=== PATIENT | female | born 1940 | race Two or more races ===

== ENCOUNTER 2023-06-04 10:38 | Emergency (ER) | payer MEDICARE, OTHER, SELFPAY ==
[2023-06-04] VITALS (8 sets, daily range): BP systolic 97–130; BP diastolic 67–76
--- NOTE | 2023-06-04 10:55 | ED.GENMED ---
History of Present Illness
General
Chief Complaint: Change in Mental Status
Source: patient
Exam Limitations: none
Time Seen by Provider: 06/04/23 10:46
Travel History
Have you had any contact with someone who has COVID-19?: Unable to Answer
Do you have any symptoms of coronavirus? Fever > 100 degrees, chills, cough, shortness of breath, sore throat, loss of taste or smell, muscle aches, or headache?: Unable to Answer
History of Present Illness
History of Present Illness:
82-year-old female with history of dementia, coronary artery disease COPD presents from [facility] with increased lethargy that noticed this morning. Patient very poor historian. Cannot obtain any history from the patient. She was
hypotensive for EMS. No reported fever.
Phy Exam
Physical Exam
Physical Exam:
General: Well-appearing female in no acute respiratory distress
HEENT: Normocephalic mucosa dry neck is supple heart: Regular rate and rhythm no murmurs
Lungs: Breath sounds diminished bilaterally
Abdomen soft nontender nondistended
Extremities: No cyanosis or edema
Course
Orders/Labs/Results
Orders:
Orders
06/04/23 10:42
EKG [Electrocardiogram (*1)] Urgent
Reason for Study: Fatigue / Weakness
EKG- Treatment ONCE
06/04/23 10:56
0.9% Sodium Chloride 1000 ml [Nss] 1,000 ml IV BOLUS
06/04/23 10:58
CR Chest - 2 Views Urgent
Comment:
Reason For Exam: fatigue
06/04/23 11:06
Basic Metabolic Panel Urgent
Complete Blood Count/With Diff Urgent
Lactic Acid Q4H
Comment: CANCEL 2nd LACTIC ACID IF 1st LACTIC ACID IS LESS THAN 2
Blood Culture Q30M
GUMARO Source: Blood/Venous
Specimen Description:
Blood Culture Q30M
GUMARO Source: Blood/Venous
Specimen Description:
06/04/23 11:55
Comprehensive Metabolic Panel Urgent
06/04/23 14:03
Urinalysis Reflex To Culture Urgent
Date Specimen was Collected: 06/04/23
Time Specimen was Collected: 14:01
Urine Microscopic Reflex Cult Urgent
Urine Culture Urgent
GUMARO Source: U
Specimen Description:
Date Specimen was Collected: 06/04/23
Time Specimen was Collected: 14:01
06/04/23 15:00
Lactic Acid Q4H
Comment: CANCEL 2nd LACTIC ACID IF 1st LACTIC ACID IS LESS THAN 2
Abnormal Lab Results
06/04/23 06/04/23 06/04/23
11:06 11:55 14:03
MCHC 32.3 L g/dL
(33.0-37.0)
Absolute Neuts (auto) 7.3 H 10^3/uL
(1.4-6.5)
Absolute Monos (auto) 0.8 H 10^3/uL
(0.1-0.6)
Lymphocytes % 18.8 L %
(20.5-51.1)
Chloride 110 H mmol/L 110 H mmol/L
(98-107) (98-107)
Carbon Dioxide 20 L mmol/L
(22-30)
BUN 33 H mg/dl 32 H mg/dl
(7-17) (7-17)
Creatinine 1.1 H mg/dL
(0.6-1.0)
Glucose 131 H mg/dl 128 H mg/dl
(70-99) (70-99)
Lactic Acid 2.3 H mmol/L
(0.7-2.0)
Urine Bilirubin 1+ A
(Negative)
Leukocyte Esterase Rfl 1+ A
(Negative)
Urine WBC (Reflex) 11-15 A /HPF
(0-5)
Urine Bacteria (Reflex) Few A
(Negative)
06/04/23 11:06
06/04/23 11:55
Vital Signs
Initial and Last Documented VS:
Initial Vital Signs
Temp Pulse Resp BP Pulse Ox
97.5 F 74 16 97/74 96
06/04/23 10:53 06/04/23 10:53 06/04/23 10:53 06/04/23 10:53 06/04/23 10:53
Last Documented Vital Signs
Temp Pulse Resp BP Pulse Ox
97.5 F 90 10 109/71 95
06/04/23 10:53 06/04/23 13:00 06/04/23 13:00 06/04/23 13:00 06/04/23 11:48
MDM/Problems Addressed
Differential Diagnosis Includes:
Increased fatigue. Hypotensive here blood pressure 97/74. Will order IV fluids. Check labs urinalysis chest x-ray and blood culture. Initial attempt at straight cath provided just a couple drops of urine not enough to provide a sample. Will
hydrate and check again.
*Critical Care Note
Total Time (30-74mins, 75-104mins- exclusive of procedures): Not Applicable
Update Note
Update Note:
EKG shows sinus rhythm with sinus arrhythmia with a rate of 74 no ischemic changes
Urinalysis negative. Chest x-ray shows hiatal hernia. Workup here unrevealing. Vital signs been stable here. Suspect she was slightly dehydrated. She did make urine after giving a liter of fluid. No indication for admission stable for discharge
ED Attending Note
-
Portions of this chart may have been created with voice recognition software.� Occasional wrong word or��sound alike� substitutions may have occurred due to the inherent limitations of voice recognition software.
Discharge Plan
Departure
Patient Disposition: Home (Routine Discharge)
Date of Disposition: 06/04/23
Time of Disposition: 14:46
Patient with high blood pressure during this ER visit?: No
Discharge Problem:
Dehydration
Instructions: Altered Mental Status (DC)
Prescriptions:
No Action
quetiapine [Seroquel] 25 mg Tablet
125 mg PO DAILY
acetaminophen [Tylenol] 325 mg Tablet
650 mg PO DAILYPRN PRN (Reason: MILD PAIN)
trazodone 50 mg Tablet
25 mg PO HS
trazodone 50 mg Tablet
50 mg PO DAILY
atorvastatin [Lipitor] 10 mg Tablet
10 mg PO QPM
quetiapine [Seroquel] 100 mg Tablet
100 mg PO QPM
acetaminophen [Tylenol Extra Strength] 500 mg Tablet
1,000 mg PO BID
famotidine [Pepcid] 20 mg Tablet
20 mg PO DAILY
lorazepam 0.5 mg Tablet
0.5 mg PO HS
magnesium hydroxide [Milk of Magnesia] 400 mg/5 mL Suspension
2,400 mg PO HSPRN PRN (Reason: CONSTIPATION)
bisacodyl [Dulcolax (bisacodyl)] 10 mg Suppository
10 mg [place] [id number] PRN (Reason: IF NO BM AFTR MOM)
nitroglycerin [Nitrostat] 0.4 mg Tablet, Sublingual
0.4 mg SUBLINGUAL [id number] PRN (Reason: CHEST PAIN)
Debrox 6.5 % Drops
2 drp OTIC (EAR) MOFR
alum-mag hydroxide-simeth [Maalox] 200-200-20 mg/5 mL Suspension
30 ml PO Q6HPRN PRN (Reason: INDIGESTION)
celecoxib 100 mg Capsule
100 mg PO DAILY@1630
diclofenac sodium [Voltaren] 1 % Gel
3 g TOPICAL Q8H
Lorazepam Gel 0.5 MG gel
0.5 mg topical DAILYPRN PRN (Reason: ANXIETY)
Referrals:
Octaviano Oconnor DO [Family Provider] -
Activity Restrictions/Additional Instructions:
Please continue current regimen. Return here for worsening symptoms.
Interventions
Interventions:
*Risk Screen - Suicide Last Done: 06/04/23 13:05
*General Assessment Last Done: 06/04/23 11:31
*Neglect/Abuse Screening Last Done: 06/04/23 11:31
*ED COVID-19 Vaccine History Last Done: 06/04/23 11:31
ED- Pulmonary Assessment Last Done: 06/04/23 11:48
ED- Neurological Assessment Last Done: 06/04/23 11:46
ED- Cardiac Assessment Last Done: 06/04/23 11:45
Discharge Date and Time
Print Language: OMANI
[2023-06-04] MEDS: NSS 1000 IV (11:05)
[2023-06-04 11:15] LABS: % Basophils 0.3 % (0-2); % Eosinophils 1.5 % (0-6); % Immature Granulocytes 0.3 % (0-0.5); % Lymphocytes 18.8 % (20.5-51.1); % Neutrophils 71.1 % (42.2-75.2); Absolute Eosinophils 0.2 10^3/uL (0-0.7); Absolute Lymphocytes 1.9 10^3/uL (1.2-3.4); Absolute Monocytes 0.8 10^3/uL (0.1-0.6); Absolute Neutrophils 7.3 10^3/uL (1.4-6.5); Hematocrit 39.6 % (37.0-47.0); Hemoglobin 12.8 g/dL (12.0-16.0); Mean Corp Hgb Conc. 32.3 g/dL (33.0-37.0); Mean Corpuscular Hgb 29.9 pg (27.0-31.0); Mean Corpuscular Volume 92.5 fL (81.0-99.0); Mean Platelet Volume 10.4 fL (7.4-10.4); Nucleated Red Blood Cells % 0 %; Platelet Count 223 10^3/uL (130-400); Red Blood Cell Count 4.28 10^6/uL (4.20-5.40); Red Cell Dist. Width 14.4 % (11.5-14.5); White Blood Cell Count 10.2 10^3/uL (4.8-10.8)
[2023-06-04 11:34] LABS: Blood Urea Nitrogen 33 mg/dl (7-17); Calcium 10.1 mg/dl (8.4-10.2); Carbon Dioxide 20 mmol/L (22-30); Chloride 110 mmol/L (98-107); Glucose 131 mg/dl (70-99); Sodium 138 mmol/L (135-145); eGFR 56.25
[2023-06-04 12:35] LABS: ALT (SGPT) 13 U/L (0-35); AST (SGOT) 23 U/L (14-36); Albumin 4.1 g/dl (3.5-5.0); Alkaline Phosphatase 80 U/L (38-126); Blood Urea Nitrogen 32 mg/dl (7-17); Carbon Dioxide 23 mmol/L (22-30); Chloride 110 mmol/L (98-107); Glucose 128 mg/dl (70-99); Potassium 4.5 mmol/L (3.5-5.1); Sodium 139 mmol/L (135-145); Total Bilirubin 0.4 mg/dl (0.2-1.3); eGFR 50.17
[2023-06-04 12:37] LABS: Lactic Acid 2.3 mmol/L (0.7-2.0)
[2023-06-04 14:11] LABS: Urine Albumin Negative (Neg - Trace); Urine Bilirubin 1+ (Negative); Urine Character Clear (Clear); Urine Color Yellow; Urine Glucose Negative (Negative); Urine Ketone Negative (Negative); Urine Leukocyte 1+ (Negative); Urine Nitrite Negative (Negative); Urine Occult Blood Negative (Negative); Urine Urobilinogen 1+ (Neg - 1+)
[2023-06-04 14:28] LABS: Urine Mucus Few
[2023-06-04 14:30] LABS: Urine Amorphous Seen; Urine Hyaline Cast >15 /LPF (0-2)
[2023-06-04 14:31] LABS: Urine Bacteria Few (Negative); Urine Red Blood Cell 0-2 /HPF (0-2)
== END 2023-06-04 17:40 | disposition home or self-care (01) ==
LOC: EMR 10:38
PROVIDERS: Physician Assistant; EMERGENCY PHYSICIAN Emergency Medicine; FAMILY PHYSICIAN Student in an Organized Health Care Education/Training Program
DX: E86.0 Dehydration (principal); F03.90 Unspecified dementia, unspecified severity, without behavioral disturbance, psychotic disturbance, mood disturbance, and anxiety; K44.9 Diaphragmatic hernia without obstruction or gangrene
CPT/HCPCS: 99285; 96360; 71046; 80048; 80053; 81003; 81015; 83605; 85025; 87040; 87086; 93005

== ENCOUNTER 2023-08-04 15:28 | Emergency (ER) | payer MEDICARE, OTHER, SELFPAY ==
[2023-08-04] VITALS (7 sets, daily range): BP systolic 80–129; BP diastolic 47–66; BMI 24.4
--- NOTE | 2023-08-04 16:09 | ED.GENMED ---
History of Present Illness
General
Chief Complaint: Blood Pressure Problem
Source: patient
Exam Limitations: none
Time Seen by Provider: 08/04/23 16:00
History of Present Illness
History of Present Illness:
82-year-old female presents from [facility] with episode of unresponsiveness and weakness. Patient has dementia and cannot provide any valuable history. Noted to be hypotensive on arrival. Currently not accompanied by any family members.
Phy Exam
Physical Exam
Physical Exam:
General: Well-developed female resting comfortably no acute respiratory distress
Neurologic: Responds to verbal stimuli able to tell me her name face is symmetric no drift on exam does follow commands occasionally
Heart: Regular rate and rhythm
Lungs: Clear to auscultation bilaterally
Extremities: No cyanosis or edema
Skin warm no rash
Course
Orders/Labs/Results
Orders:
Orders
08/04/23 17:28
0.9% Sodium Chloride 500 ml [Nss] 500 ml IV BOLUS
08/04/23 17:34
Complete Blood Count/With Diff Urgent
Comprehensive Metabolic Panel Urgent
Abnormal Lab Results
08/04/23
17:34
WBC 14.0 H 10^3/uL
(4.8-10.8)
MCHC 32.3 L g/dL
(33.0-37.0)
Abs Immat Gran (auto) 0.1 H 10^3/uL
(0-0.05)
Absolute Neuts (auto) 12.2 H 10^3/uL
(1.4-6.5)
Absolute Lymphs (auto) 0.9 L 10^3/uL
(1.2-3.4)
Absolute Monos (auto) 0.7 H 10^3/uL
(0.1-0.6)
Neutrophils % 87.2 H %
(42.2-75.2)
Lymphocytes % 6.7 L %
(20.5-51.1)
Chloride 111 H mmol/L
(98-107)
Carbon Dioxide 21 L mmol/L
(22-30)
BUN 30 H mg/dl
(7-17)
Glucose 131 H mg/dl
(70-99)
08/04/23 17:34
08/04/23 17:34
Vital Signs
Initial and Last Documented VS:
Initial Vital Signs
Temp Pulse Resp BP Pulse Ox
97.9 F 65 16 80/65 94
08/04/23 15:32 08/04/23 15:32 08/04/23 15:32 08/04/23 15:32 08/04/23 15:32
Last Documented Vital Signs
Temp Pulse Resp BP Pulse Ox
97.9 F 65 16 117/60 92
08/04/23 15:32 08/04/23 15:32 08/04/23 15:32 08/04/23 18:30 08/04/23 15:37
MDM/Problems Addressed
Differential Diagnosis Includes:
Weakness. Consider volume depletion. Afebrile will check labs. Hydration ordered.
Patient has similar presentation in May of this year and responded to fluids
*Critical Care Note
Total Time (30-74mins, 75-104mins- exclusive of procedures): Not Applicable
Update Note
Update Note:
Patient reevaluated. She is alert now getting out of bed. She was hydrated. Blood pressure is improved. Stable for discharge back to facility
ED Attending Note
-
Portions of this chart may have been created with voice recognition software.� Occasional wrong word or��sound alike� substitutions may have occurred due to the inherent limitations of voice recognition software.
Discharge Plan
Departure
Patient Disposition: Home (Routine Discharge)
Date of Disposition: 08/04/23
Time of Disposition: 19:12
Patient with high blood pressure during this ER visit?: No
Discharge Problem:
Acute dehydration
Prescriptions:
No Action
quetiapine [Seroquel] 25 mg Tablet
125 mg PO DAILY
acetaminophen [Tylenol] 325 mg Tablet
650 mg PO DAILYPRN PRN (Reason: MILD PAIN)
trazodone 50 mg Tablet
25 mg PO HS
trazodone 50 mg Tablet
50 mg PO DAILY
atorvastatin [Lipitor] 10 mg Tablet
10 mg PO QPM
quetiapine [Seroquel] 100 mg Tablet
100 mg PO QPM
acetaminophen [Tylenol Extra Strength] 500 mg Tablet
1,000 mg PO BID
famotidine [Pepcid] 20 mg Tablet
20 mg PO DAILY
lorazepam 0.5 mg Tablet
0.5 mg PO HS
magnesium hydroxide [Milk of Magnesia] 400 mg/5 mL Suspension
2,400 mg PO HSPRN PRN (Reason: CONSTIPATION)
bisacodyl [Dulcolax (bisacodyl)] 10 mg Suppository
10 mg [place] [id number] PRN (Reason: IF NO BM AFTR MOM)
nitroglycerin [Nitrostat] 0.4 mg Tablet, Sublingual
0.4 mg SUBLINGUAL [id number] PRN (Reason: CHEST PAIN)
Debrox 6.5 % Drops
2 drp OTIC (EAR) MOFR
alum-mag hydroxide-simeth [Maalox] 200-200-20 mg/5 mL Suspension
30 ml PO Q6HPRN PRN (Reason: INDIGESTION)
celecoxib 100 mg Capsule
100 mg PO DAILY@1630
diclofenac sodium [Voltaren] 1 % Gel
3 g TOPICAL Q8H
Lorazepam Gel 0.5 MG gel
0.5 mg topical DAILYPRN PRN (Reason: ANXIETY)
Referrals:
Octaviano Oconnor DO [Family Provider] -
Activity Restrictions/Additional Instructions:
Please return here if needed
Interventions
Interventions:
*Risk Screen - Suicide Last Done: 08/04/23 15:32
*General Assessment Last Done: 08/04/23 15:32
*Neglect/Abuse Screening Last Done: 08/04/23 15:32
*ED COVID-19 Vaccine History Last Done: 08/04/23 15:32
ED- Cardiac Assessment Last Done: 08/04/23 15:37
ED- Neurological Assessment Last Done: 08/04/23 15:37
ED- Pulmonary Assessment Last Done: 08/04/23 15:37
Discharge Date and Time
Print Language: CROATIAN
[2023-08-04] MEDS: NSS 500 IV (17:36)
[2023-08-04 17:40] LABS: % Basophils 0.2 % (0-2); % Eosinophils 0.2 % (0-6); % Immature Granulocytes 0.4 % (0-0.5); % Lymphocytes 6.7 % (20.5-51.1); % Monocytes 5.3 % (1.7-9.3); % Neutrophils 87.2 % (42.2-75.2); Absolute Immature Granulocytes 0.1 10^3/uL (0-0.05); Absolute Lymphocytes 0.9 10^3/uL (1.2-3.4); Absolute Monocytes 0.7 10^3/uL (0.1-0.6); Absolute Neutrophils 12.2 10^3/uL (1.4-6.5); Hemoglobin 12.6 g/dL (12.0-16.0); Mean Corp Hgb Conc. 32.3 g/dL (33.0-37.0); Mean Corpuscular Hgb 29.8 pg (27.0-31.0); Mean Corpuscular Volume 92.2 fL (81.0-99.0); Mean Platelet Volume 9.9 fL (7.4-10.4); Nucleated Red Blood Cells % 0 %; Platelet Count 210 10^3/uL (130-400); Red Blood Cell Count 4.23 10^6/uL (4.20-5.40); Red Cell Dist. Width 14.3 % (11.5-14.5)
[2023-08-04 18:04] LABS: ALT (SGPT) 11 U/L (0-35); AST (SGOT) 19 U/L (14-36); Albumin 3.7 g/dl (3.5-5.0); Alkaline Phosphatase 67 U/L (38-126); Blood Urea Nitrogen 30 mg/dl (7-17); Calcium 9.2 mg/dl (8.4-10.2); Carbon Dioxide 21 mmol/L (22-30); Chloride 111 mmol/L (98-107); Estimated Creatinine Clearance 39 ml/min; Glucose 131 mg/dl (70-99); Potassium 4.3 mmol/L (3.5-5.1); Sodium 139 mmol/L (135-145); Total Bilirubin 0.4 mg/dl (0.2-1.3); Total Protein 6.5 g/dl (6.3-8.2); eGFR 56.25
[2023-08-04] MEDS: ATIVAN 0.5 MG IV (19:21)
--- NOTE | 2023-08-04 19:25 | EDRN ---
Per staff, pt was trying to climb out of bed and when staff attempted to put her back in stretcher she tried to bite staff. Staff tilted the stretcher backwards and pt continued to try and get out of bed. Pt was banging on side rail, yelling and
shaking her hand in the air. Pt became 1:1 for pt safety - EDT at bedside. Pt medicated with 0.5mg ativan IV as ordered with noted improvement - pt still talking occasionally, not yelling or trying to hit/bite staff. Pt also not trying to get out
of bed. Pt said she wants to go home - informed transport will be here to take her home. Pt then said 'but my mother doesn't know where I am.' Emotional support provided to pt.
--- NOTE | 2023-08-04 20:35 | EDRN ---
Pt sitting in chair, talking quietly with EDT. This RN attempted to call report - no answer
== END 2023-08-04 21:20 | disposition home or self-care (01) ==
LOC: EMR 15:28
PROVIDERS: Physician Assistant; EMERGENCY PHYSICIAN Emergency Medicine; FAMILY PHYSICIAN Student in an Organized Health Care Education/Training Program
DX: R40.4 Transient alteration of awareness (principal); R53.1 Weakness; I95.9 Hypotension, unspecified; E86.0 Dehydration; F03.90 Unspecified dementia, unspecified severity, without behavioral disturbance, psychotic disturbance, mood disturbance, and anxiety; Z88.0 Allergy status to penicillin
CPT/HCPCS: 99284; 96374; 80053; 85025

== ENCOUNTER → 2023-08-12 10:16 | Outpatient (REF) | payer MEDICARE, OTHER, SELFPAY ==
[2023-08-12 11:02] LABS: Hematocrit 38.8 % (37.0-47.0); Hemoglobin 11.9 g/dL (12.0-16.0); Mean Corp Hgb Conc. 30.7 g/dL (33.0-37.0); Mean Corpuscular Hgb 29.4 pg (27.0-31.0); Mean Corpuscular Volume 95.8 fL (81.0-99.0); Mean Platelet Volume 10.6 fL (7.4-10.4); Platelet Count 227 10^3/uL (130-400); Red Blood Cell Count 4.05 10^6/uL (4.20-5.40); Red Cell Dist. Width 14.1 % (11.5-14.5); White Blood Cell Count 5.7 10^3/uL (4.8-10.8)
[2023-08-12 11:28] LABS: Blood Urea Nitrogen 29 mg/dl (7-17); Calcium 9.3 mg/dl (8.4-10.2); Carbon Dioxide 25 mmol/L (22-30); Chloride 107 mmol/L (98-107); Glucose 81 mg/dl (70-99); Potassium 4.3 mmol/L (3.5-5.1); Sodium 140 mmol/L (135-145); eGFR > 60.00
== END ==
LOC: OLABN 10:16
PROVIDERS: ATTENDING PHYSICIAN Student in an Organized Health Care Education/Training Program
DX: I10 Essential (primary) hypertension (principal)
CPT/HCPCS: 36415; 80048; 83735; 85027

== ENCOUNTER → 2023-12-23 09:24 | Outpatient (REF) | payer MEDICARE, OTHER, SELFPAY ==
[2023-12-23 12:30] LABS: ALT (SGPT) 13 U/L (0-35); AST (SGOT) 20 U/L (14-36); Albumin 3.9 g/dl (3.5-5.0); Alkaline Phosphatase 64 U/L (38-126); Blood Urea Nitrogen 28 mg/dl (7-17); Calcium 9.8 mg/dl (8.4-10.2); Carbon Dioxide 25 mmol/L (22-30); Chloride 107 mmol/L (98-107); Glucose 90 mg/dl (70-99); HDL Cholesterol 45 mg/dl; LDL Cholesterol, Calculated 69 mg/dl; Potassium 4.4 mmol/L (3.5-5.1); Sodium 144 mmol/L (135-145); Total Bilirubin 0.3 mg/dl (0.2-1.3); Total Cholesterol 145 mg/dl (50-199); Total Protein 6.5 g/dl (6.3-8.2); Triglyceride 158 mg/dl (10-149); Very Low Density Lipoprotein 31 mg/dl (0-30); eGFR 49.86
[2023-12-23 12:33] LABS: Hematocrit 38.7 % (37.0-47.0); Hemoglobin 12.1 g/dL (12.0-16.0); Mean Corp Hgb Conc. 31.3 g/dL (33.0-37.0); Mean Corpuscular Hgb 30.1 pg (27.0-31.0); Mean Corpuscular Volume 96.3 fL (81.0-99.0); Platelet Count 228 10^3/uL (130-400); Red Blood Cell Count 4.02 10^6/uL (4.20-5.40); Red Cell Dist. Width 13.9 % (11.5-14.5); White Blood Cell Count 6.3 10^3/uL (4.8-10.8)
[2023-12-23 14:36] LABS: Glycohemoglobin (HgbA1c) 5.5 % (4.0-5.6)
== END ==
LOC: OLABN 09:24
PROVIDERS: ATTENDING PHYSICIAN Student in an Organized Health Care Education/Training Program
DX: I10 Essential (primary) hypertension (principal); R73.9 Hyperglycemia, unspecified
CPT/HCPCS: 36415; 80053; 80061; 83036; 85027

== ENCOUNTER 2024-03-09 11:53 | Emergency (ER) | payer MEDICARE, OTHER, SELFPAY ==
[2024-03-09 12:08] VITALS: BP 146/124
[2024-03-09 12:34] LABS: Urine Albumin Negative (Neg - Trace); Urine Bilirubin Negative (Negative); Urine Character Clear (Clear); Urine Color Yellow; Urine Glucose Negative (Negative); Urine Ketone Negative (Negative); Urine Leukocyte Negative (Negative); Urine Nitrite Negative (Negative); Urine Occult Blood Negative (Negative); Urine Urobilinogen Negative (Neg - 1+)
[2024-03-09 12:36] LABS: % Basophils 0.3 % (0-2); % Eosinophils 1.3 % (0-6); % Immature Granulocytes 0.4 % (0-0.5); % Lymphocytes 11.8 % (20.5-51.1); % Monocytes 9.5 % (1.7-9.3); % Neutrophils 76.7 % (42.2-75.2); Absolute Eosinophils 0.2 10^3/uL (0-0.7); Absolute Immature Granulocytes 0.1 10^3/uL (0-0.05); Absolute Lymphocytes 1.4 10^3/uL (1.2-3.4); Absolute Monocytes 1.1 10^3/uL (0.1-0.6); Absolute Neutrophils 9.2 10^3/uL (1.4-6.5); Hematocrit 42.4 % (37.0-47.0); Hemoglobin 13.1 g/dL (12.0-16.0); Mean Corp Hgb Conc. 30.9 g/dL (33.0-37.0); Mean Corpuscular Hgb 29.6 pg (27.0-31.0); Mean Corpuscular Volume 95.9 fL (81.0-99.0); Mean Platelet Volume 10.7 fL (7.4-10.4); Nucleated Red Blood Cells % 0 %; Platelet Count 222 10^3/uL (130-400); Red Blood Cell Count 4.42 10^6/uL (4.20-5.40); Red Cell Dist. Width 13.9 % (11.5-14.5)
[2024-03-09 12:49] LABS: ALT (SGPT) 14 U/L (0-35); AST (SGOT) 21 U/L (14-36); Alkaline Phosphatase 96 U/L (38-126); Blood Urea Nitrogen 20 mg/dl (7-17); Calcium 9.6 mg/dl (8.4-10.2); Carbon Dioxide 24 mmol/L (22-30); Chloride 105 mmol/L (98-107); Glucose 99 mg/dl (70-99); Potassium 4.7 mmol/L (3.5-5.1); Sodium 139 mmol/L (135-145); Total Bilirubin 0.9 mg/dl (0.2-1.3); eGFR > 60.00
--- NOTE | 2024-03-09 14:18 | ED.GENMED ---
History of Present Illness
General
Chief Complaint: Change in Mental Status
Source: ambulance crew and [facility]
Exam Limitations: dementia
Time Seen by Provider: 03/09/24 12:42
Nursing documentation reviewed up to this point in time: agreed with
History of Present Illness
History of Present Illness:
83-year-old female presenting to the emergency department today after she was lethargic at her nursing facility. Here she is fully alert not oriented but this is patient's baseline. Labs show very slight white count of 12 but otherwise no emergent
findings. Patient is a DNR and comfort measures only.
Review of Systems
Review of Systems
Allergies reviewed?: Yes
All Other Systems: ROS reviewed and negative except as documented in HPI and ROS
Phy Exam
Physical Exam
Physical Exam:
GENERAL: Alert , in no apparent distress
EYE: pupils equal and reactive
NECK: Supple, no significant adenopathy.
ENT: o/p clr, mmm.
CARDIAC: Regular rate and rhythm .
LUNGS: Clear breath sounds bilaterally, no acute respiratory distress, no wheezes/rales/rhonchi
ABDOMEN: Soft, without focal tenderness, no r/g, no cvat
NEUROLOGICAL: Alert no focal neuro deficits walking with steady gait
SKIN: Warm and dry, skin intact.
MUSCULOSKELETAL: No edema, well perfused.
PSYCH: Normal and appropriate interaction.
Course
Orders/Labs/Results
Orders:
Orders
03/09/24 12:15
Straight cath- Treatment ONCE
03/09/24 12:16
CMP [Comprehensive Metabolic Panel] Urgent
Complete Blood Count/With Diff Urgent
Urinalysis Reflex To Culture Urgent
Date Specimen was Collected: 03/09/24
Time Specimen was Collected: 12:15
03/09/24 13:50
COVID-19 Antigen Urgent
Source: Nasal Swab
Influenza A+B Rapid Molecular Urgent
GUMARO Source: Nasal Swab
Specimen Description:
Abnormal Lab Results
03/09/24
12:16
WBC 12.0 H 10^3/uL
(4.8-10.8)
MCHC 30.9 L g/dL
(33.0-37.0)
MPV 10.7 H fL
(7.4-10.4)
Abs Immat Gran (auto) 0.1 H 10^3/uL
(0-0.05)
Absolute Neuts (auto) 9.2 H 10^3/uL
(1.4-6.5)
Absolute Monos (auto) 1.1 H 10^3/uL
(0.1-0.6)
Neutrophils % 76.7 H %
(42.2-75.2)
Lymphocytes % 11.8 L %
(20.5-51.1)
Monocytes % 9.5 H %
(1.7-9.3)
BUN 20 H mg/dl
(7-17)
03/09/24 12:16
03/09/24 12:16
Vital Signs
Initial and Last Documented VS:
Initial Vital Signs
Temp Pulse Resp BP Pulse Ox
98.8 F 72 15 146/124 97
03/09/24 12:08 03/09/24 12:08 03/09/24 12:03/09/24 12:08 03/09/24 12:08
Last Documented Vital Signs
Temp Pulse Resp BP Pulse Ox
98.8 F 81 22 146/124 98
03/09/24 12:08 03/09/24 12:30 03/09/24 12:30 03/09/24 12:08 03/09/24 12:15
MDM/Problems Addressed
MDM/Problems Addressed:
83-year-old female presenting to the emergency department today after she was lethargic at her nursing facility. Here she is fully alert not oriented but this is patient's baseline. Labs show very slight white count of 12 but otherwise no emergent
findings. Patient is a DNR and comfort measures only. At this point patient does not appear lethargic has normal vital signs stable for further monitoring at the nursing facility.
*Critical Care Note
Total Time (30-74mins, 75-104mins- exclusive of procedures): Not Applicable
ED Attending Note
-
Portions of this chart may have been created with voice recognition software.� Occasional wrong word or��sound alike� substitutions may have occurred due to the inherent limitations of voice recognition software.
Discharge Plan
Departure
Patient Disposition: Detention/SNF
Date of Disposition: 03/09/24
Time of Disposition: 14:18
Patient with high blood pressure during this ER visit?: No
Condition: Good
Covid-19: Not Applicable
Discharge Problem:
Fatigue
Instructions: Dementia (DC)
Prescriptions:
No Action
acetaminophen [Tylenol] 325 mg Tablet
650 mg PO BID
trazodone 50 mg Tablet
25 mg PO HS
trazodone 50 mg Tablet
50 mg PO DAILY
atorvastatin [Lipitor] 10 mg Tablet
10 mg PO QPM
famotidine [Pepcid] 20 mg Tablet
20 mg PO DAILY
lorazepam 0.5 mg Tablet
0.5 mg PO HS
magnesium hydroxide [Milk of Magnesia] 400 mg/5 mL Suspension
2,400 mg PO HSPRN PRN (Reason: CONSTIPATION)
bisacodyl [Dulcolax (bisacodyl)] 10 mg Suppository
10 mg [place] [id number] PRN (Reason: IF NO BM AFTR MOM)
nitroglycerin [Nitrostat] 0.4 mg Tablet, Sublingual
0.4 mg SUBLINGUAL [id number] PRN (Reason: CHEST PAIN)
alum-mag hydroxide-simeth [Maalox] 200-200-20 mg/5 mL Suspension
30 ml PO Q6HPRN PRN (Reason: INDIGESTION)
diclofenac sodium [Voltaren] 1 % Gel
3 g TOPICAL Q8H
quetiapine [Seroquel] 100 mg Tablet
100 mg PO BID
Referrals:
PRIVATE,PHYSICIAN [Family Provider] -
Activity Restrictions/Additional Instructions:
Please monitor over the next few days and have her return for any progressive or worsening symptoms. Emily came to the emergency department today after being found lethargic. Here she had a reassuring assessment no signs of UTI normal labs
Interventions
Interventions:
*Risk Screen - Suicide Last Done: 03/09/24 12:08
*General Assessment Last Done: 03/09/24 12:08
*Neglect/Abuse Screening Last Done: 03/09/24 12:08
*ED COVID-19 Vaccine History Last Done: 03/09/24 12:08
ED- Neurological Assessment Last Done: 03/09/24 12:08
Discharge Date and Time
Print Language: CZECH
[2024-03-09 14:33] LABS: COVID-19 Antigen Negative (Negative)
[2024-03-09] MEDS: ATIVAN 0.5 MG IM (14:40)
== END 2024-03-09 15:02 ==
LOC: EMR 11:53
PROVIDERS: Physician Assistant; EMERGENCY PHYSICIAN Student in an Organized Health Care Education/Training Program
DX: R53.83 Other fatigue (principal); F03.90 Unspecified dementia, unspecified severity, without behavioral disturbance, psychotic disturbance, mood disturbance, and anxiety; Z51.5 Encounter for palliative care; Z66 Do not resuscitate
CPT/HCPCS: 96372; 99284; 80053; 81003; 85025; 87502; 87811

== ENCOUNTER → 2024-05-07 12:10 | Outpatient (REF) | payer MEDICARE, OTHER, SELFPAY ==
[2024-05-07 12:32] LABS: Hematocrit 37.3 % (37.0-47.0); Hemoglobin 11.7 g/dL (12.0-16.0); Mean Corp Hgb Conc. 31.4 g/dL (33.0-37.0); Mean Corpuscular Hgb 30.2 pg (27.0-31.0); Mean Corpuscular Volume 96.1 fL (81.0-99.0); Mean Platelet Volume 10.9 fL (7.4-10.4); Platelet Count 291 10^3/uL (130-400); Red Blood Cell Count 3.88 10^6/uL (4.20-5.40); Red Cell Dist. Width 14.2 % (11.5-14.5); White Blood Cell Count 8.6 10^3/uL (4.8-10.8)
== END ==
LOC: OLABN 12:10
PROVIDERS: ATTENDING PHYSICIAN Student in an Organized Health Care Education/Training Program
DX: M79.81 Nontraumatic hematoma of soft tissue (principal)
CPT/HCPCS: 36415; 85027

== ENCOUNTER 2024-05-08 20:45 | Emergency (ER) | payer MEDICARE, OTHER, SELFPAY ==
[2024-05-08 20:46] VITALS: BP 111/69
[2024-05-08 21:17] LABS: % Basophils 0.3 % (0-2); % Eosinophils 2.4 % (0-6); % Immature Granulocytes 0.7 % (0-0.5); % Lymphocytes 20.3 % (20.5-51.1); % Monocytes 6.1 % (1.7-9.3); % Neutrophils 70.2 % (42.2-75.2); Absolute Eosinophils 0.2 10^3/uL (0-0.7); Absolute Immature Granulocytes 0.1 10^3/uL (0-0.05); Absolute Lymphocytes 1.5 10^3/uL (1.2-3.4); Absolute Monocytes 0.5 10^3/uL (0.1-0.6); Absolute Neutrophils 5.3 10^3/uL (1.4-6.5); Hematocrit 39.6 % (37.0-47.0); Hemoglobin 12.8 g/dL (12.0-16.0); Mean Corp Hgb Conc. 32.3 g/dL (33.0-37.0); Mean Corpuscular Hgb 30.2 pg (27.0-31.0); Mean Corpuscular Volume 93.4 fL (81.0-99.0); Mean Platelet Volume 9.8 fL (7.4-10.4); Nucleated Red Blood Cells % 0 %; Platelet Count 339 10^3/uL (130-400); Red Blood Cell Count 4.24 10^6/uL (4.20-5.40); Red Cell Dist. Width 14.2 % (11.5-14.5); White Blood Cell Count 7.5 10^3/uL (4.8-10.8)
[2024-05-08 21:38] VITALS: BMI 26.1
[2024-05-08 21:41] LABS: ALT (SGPT) 17 U/L (0-35); AST (SGOT) 24 U/L (14-36); Albumin 3.9 g/dl (3.5-5.0); Alkaline Phosphatase 80 U/L (38-126); Blood Urea Nitrogen 32 mg/dl (7-17); Calcium 10.1 mg/dl (8.4-10.2); Carbon Dioxide 25 mmol/L (22-30); Chloride 109 mmol/L (98-107); Estimated Creatinine Clearance 48 ml/min; Glucose 143 mg/dl (70-99); Potassium 4.8 mmol/L (3.5-5.1); Sodium 143 mmol/L (135-145); Total Bilirubin 0.6 mg/dl (0.2-1.3); Total Protein 7.2 g/dl (6.3-8.2); eGFR > 60.00
--- NOTE | 2024-05-09 00:29 | ED.GENMED ---
History of Present Illness
General
Chief Complaint: Fall
Source: records
Time Seen by Provider: 05/09/24 00:16
History of Present Illness
History of Present Illness:
This patient has a history of dementia and therefore history not available from her. In review of transfer and referral record, patient has needed assist x 2 which is new. She had a fall on April 30, with 'no apparent injury'. She reportedly had
knee pain but had x-rays of her right femur hip and knees which were unremarkable. She was brought here today because of a new ecchymotic area noted to the right lower extremity as of 325. Patient was also started on Lasix on 327 for new edema.
Past History
Past History
ED Past Medical History: Other (Dementia, CAD, hyperlipidemia, reflux)
Social History
Tobacco: Other (Unable to assess patient demented)
Alcohol: Other (Unable to assess patient demented)
Drug: Other (Unable to assess patient did not)
Phy Exam
Physical Exam
Physical Exam:
GENERAL: sleeping but arousal, in no apparent distress
EYE: pupils equal and reactive
NECK: Supple, no significant adenopathy.
ENT: o/p clr, mmm.
CARDIAC: Regular rate and rhythm .
LUNGS: Clear breath sounds bilaterally, no acute respiratory distress, no wheezes/rales/rhonchi
ABDOMEN: Soft, without focal tenderness, no r/g
NEUROLOGICAL:uncooper with formal neuro exam, maee
SKIN: Warm and dry, skin intact. There is a (purple) ecchymosis noted post aspect distal R femur with scattered bruising noted R tib/fib area. No deformity, no specifc bony ttp.
MUSCULOSKELETAL: tr bilat le edema, well perfused.
PSYCH: Demetned
Course
Orders/Labs/Results
Orders:
Orders
05/08/24 21:11
Complete Blood Count/With Diff Urgent
Comprehensive Metabolic Panel Urgent
05/09/24 00:33
Femur, Right 2 View [CR Femur - Right Min 2 Vw] Urgent
Comment:
Reason For Exam: bruising
Knee, Right 4 or More Views [CR Knee- Right 4 Or More View*] Urgent
Comment:
Reason For Exam: bruising
05/09/24 02:19
US Periph Venous LOWER Ext RT Urgent
Comment:
Reason For Exam: swelling
05/09/24 04:19
CT Lumbar Spine W/o Iv Contras Urgent
Comment:
Reason For Exam: fall
Abnormal Lab Results
05/08/24
21:11
MCHC 32.3 L g/dL
(33.0-37.0)
Abs Immat Gran (auto) 0.1 H 10^3/uL
(0-0.05)
Immature Gran % 0.7 H %
(0-0.5)
Lymphocytes % 20.3 L %
(20.5-51.1)
Chloride 109 H mmol/L
(98-107)
BUN 32 H mg/dl
(7-17)
Glucose 143 H mg/dl
(70-99)
05/08/24 21:11
05/08/24 21:11
Vital Signs
Initial and Last Documented VS:
Initial Vital Signs
Temp Pulse Resp BP Pulse Ox
97.2 F 92 16 111/69 95
05/08/24 20:46 05/08/24 20:46 05/08/24 20:46 05/08/24 20:46 05/08/24 20:46
Last Documented Vital Signs
Temp Pulse Resp BP Pulse Ox
97.2 F 86 16 109/61 96
05/08/24 20:46 05/09/24 03:00 05/09/24 03:00 05/09/24 09:57 05/09/24 03:45
*Critical Care Note
Total Time (30-74mins, 75-104mins- exclusive of procedures): Not Applicable
Update Note
Update Note:
Patient presents to the Emergency Department with ___R leg swelling
Number and Complexity of Problems Addressed at the Encounter
� Chronic conditions affecting care:
� Acute Exacerbation and/or Progression of Chronic Illness:
� Differential Diagnosis includes: But not limited to delayed bruising, thrombocytopenia, fracture, soft tissue injury, etc. etc.
Amount and/or Complexity of Data to be Reviewed and Analyzed
� I performed an independent evaluation of and my interpretation is:
EKG:
CT: Vision Limited assessment without previous imaging for comparison. Age-indeterminate mild compression fracture of L5 without retropulsion. Bone demineralization. Transitional anatomy with lumbar lysed S1. Multilevel
degeneration including severe L3-S1 canal stenosis. Consider obtaining MRI for further assessment.
Xrays: Femur and knee unremarkable read by me
Laboratory Studies: Generally unremarkable
Other: Verbal report ultrasound negative for DVT
� Review of other/old records reveals: Patient has attached paperwork that demonstrates that she had x-rays of the right femur, right tib-fib, left knee, right knee, right hip with pelvis, all of which did not have acute findings
� Clinical information was obtained by an independent historian:
� Prescriptions/Medications Considered but not given:
� Further testing considered but not performed:
Risk of Complications and/or Morbidity or Mortality of Patient Management
� Social determinants of health affecting care:
� Discussion with other providers (PCP, Hospitalists, Consultants, etc):
� Escalation of care including admission/observation vs risk of discharge considered: Patient resting comfortably here. With the exception of compression fracture, no acute injury otherwise noted. Patient will return to nursing
home for further observation and management.
ED Attending Note
-
Portions of this chart may have been created with voice recognition software.� Occasional wrong word or��sound alike� substitutions may have occurred due to the inherent limitations of voice recognition software.
Discharge Plan
Departure
Patient Disposition: Fdc/SNF
Date of Disposition: 05/09/24
Time of Disposition: 07:03
Condition: Good
Discharge Problem:
Hematoma, Compression fracture
Instructions: Vertebral compression fracture
Prescriptions:
No Action
acetaminophen [Tylenol] 325 mg Tablet
650 mg PO BID
trazodone 50 mg Tablet
25 mg PO HS
trazodone 50 mg Tablet
50 mg PO DAILY
atorvastatin [Lipitor] 10 mg Tablet
10 mg PO QPM
famotidine [Pepcid] 20 mg Tablet
20 mg PO DAILY
lorazepam 0.5 mg Tablet
0.5 mg PO HS
magnesium hydroxide [Milk of Magnesia] 400 mg/5 mL Suspension
2,400 mg PO HSPRN PRN (Reason: CONSTIPATION)
bisacodyl [Dulcolax (bisacodyl)] 10 mg Suppository
10 mg [place] [id number] PRN (Reason: IF NO BM AFTR MOM)
nitroglycerin [Nitrostat] 0.4 mg Tablet, Sublingual
0.4 mg SUBLINGUAL [id number] PRN (Reason: CHEST PAIN)
alum-mag hydroxide-simeth [Maalox] 200-200-20 mg/5 mL Suspension
30 ml PO Q6HPRN PRN (Reason: INDIGESTION)
diclofenac sodium [Voltaren] 1 % Gel
3 g TOPICAL Q8H
quetiapine [Seroquel] 100 mg Tablet
100 mg PO BID
Referrals:
Octaviano Oconnor DO [Family Provider] - Follow up in 2-3 days
Activity Restrictions/Additional Instructions:
YOU HAVE A COMPRESSION FRACTURE OF YOUR L5 AREA OF YOUR SPINE.. PLEASE SEE YOUR DOCTOR PROMPTLY FOR FURTHER MANAGEMENT, INCLUDING POSSIBLY GETTING AN MRI.
Interventions
Interventions:
*Risk Screen - Suicide Last Done: 05/08/24 20:46
*General Assessment Last Done: 05/08/24 20:46
*Neglect/Abuse Screening Last Done: 05/08/24 20:46
*ED- Fall Risk Assessment Last Done: 05/08/24 21:38
*ED COVID-19 Vaccine History Last Done: 05/08/24 20:46
*Nursing Disposition Last Done: 05/09/24 10:04
ED-Musculoskeletal Assessment Last Done: 05/08/24 21:38
ED- Neurological Assessment Last Done: 05/08/24 21:38
ED-Skin Assessment Last Done: 05/08/24 21:38
Discharge Date and Time
Discharge Date/Time: 05/09/24 10:05
Print Language: [email or web address]
[2024-05-09 02:19] VITALS: BP 112/68
[2024-05-09 03:00] VITALS: BP 102/80
[2024-05-09 09:57] VITALS: BP 109/61
== END 2024-05-09 10:05 ==
LOC: EMR 20:45
PROVIDERS: Emergency Medicine; EMERGENCY PHYSICIAN Emergency Medicine; FAMILY PHYSICIAN Student in an Organized Health Care Education/Training Program
DX: S80.11XA Contusion of right lower leg, initial encounter (principal); M48.56XA Collapsed vertebra, not elsewhere classified, lumbar region, initial encounter for fracture; W19.XXXA Unspecified fall, initial encounter; F03.90 Unspecified dementia, unspecified severity, without behavioral disturbance, psychotic disturbance, mood disturbance, and anxiety
CPT/HCPCS: 99285; 72131; 73552; 73564; 80053; 85025; 93971

== ENCOUNTER → 2024-05-11 11:24 | Outpatient (REF) | payer MEDICARE, OTHER, SELFPAY ==
[2024-05-11 13:00] LABS: Blood Urea Nitrogen 28 mg/dl (7-17); Calcium 9.7 mg/dl (8.4-10.2); Carbon Dioxide 24 mmol/L (22-30); Chloride 107 mmol/L (98-107); Glucose 99 mg/dl (70-99); Potassium 4.8 mmol/L (3.5-5.1); Sodium 142 mmol/L (135-145); eGFR > 60.00
== END ==
LOC: OLABN 11:24
PROVIDERS: ATTENDING PHYSICIAN Student in an Organized Health Care Education/Training Program
DX: I10 Essential (primary) hypertension (principal)
CPT/HCPCS: 36415; 80048

== ENCOUNTER → 2024-06-22 09:25 | Outpatient (REF) | payer MEDICARE, OTHER, SELFPAY ==
[2024-06-22 10:41] LABS: Hematocrit 40.5 % (37.0-47.0); Hemoglobin 12.9 g/dL (12.0-16.0); Mean Corp Hgb Conc. 31.9 g/dL (33.0-37.0); Mean Corpuscular Hgb 30.1 pg (27.0-31.0); Mean Corpuscular Volume 94.6 fL (81.0-99.0); Mean Platelet Volume 10.6 fL (7.4-10.4); Platelet Count 309 10^3/uL (130-400); Red Blood Cell Count 4.28 10^6/uL (4.20-5.40); White Blood Cell Count 5.7 10^3/uL (4.8-10.8)
[2024-06-22 10:54] LABS: ALT (SGPT) 13 U/L (0-35); AST (SGOT) 17 U/L (14-36); Albumin 3.2 g/dl (3.5-5.0); Alkaline Phosphatase 83 U/L (38-126); Blood Urea Nitrogen 21 mg/dl (7-17); Calcium 10.2 mg/dl (8.4-10.2); Carbon Dioxide 28 mmol/L (22-30); Chloride 108 mmol/L (98-107); Glucose 93 mg/dl (70-99); HDL Cholesterol 28 mg/dl; LDL Cholesterol, Calculated 60 mg/dl; Potassium 4.3 mmol/L (3.5-5.1); Sodium 143 mmol/L (135-145); Total Bilirubin 0.4 mg/dl (0.2-1.3); Total Cholesterol 113 mg/dl (50-199); Total Protein 6.3 g/dl (6.3-8.2); Triglyceride 125 mg/dl (10-149); Very Low Density Lipoprotein 25 mg/dl (0-30); eGFR > 60.00
[2024-06-22 12:12] LABS: Glycohemoglobin (HgbA1c) 5.5 % (4.0-5.6)
== END ==
LOC: OLABN 09:25
PROVIDERS: ATTENDING PHYSICIAN Student in an Organized Health Care Education/Training Program
DX: I10 Essential (primary) hypertension (principal); R73.9 Hyperglycemia, unspecified
CPT/HCPCS: 36415; 80053; 80061; 83036; 85027

== ENCOUNTER 2024-08-10 08:01 | Inpatient (IN) | payer MEDICARE, OTHER, SELFPAY ==
--- NOTE | 2024-08-07 13:24 | CON.NEURO ---
Addendum entered and electronically signed by Yoni Chaney MD 08/07/24 15:42:
Exam corrections: Speech was dysarthric and moderately reduced output. Patient preferred to keep eyes closed. She was unable to perform two-step requests to had moderate�severe difficulty with single step requests. There was a mild asymmetry of
the face with reduced movement on the left side compared with the right. Unable to correctly discern if there was significant weakness in bilateral lower extremities which she moved equally
Addendum entered and electronically signed by Yoni Chaney MD 08/07/24 15:38:
Studies reviewed.
I have personally examined the patient. I reviewed and agree with the TRAILER DRIVER's Note.
My addenda:
Awake, alert, interactive. No acute distress.
Speech intact.
Follows 2-step requests w/o difficulty. No tremor.
Extra-ocular movements grossly intact.
Facial movements full and symmetric. Hearing intact to normal conversational volume.
Normal UE movements bilaterally.
Neck: full ROM.
Chest: no dyspnea
Heart: no JVD
Ext: (-) Clubbing, (-) Cyanosis, (-) Edema
IMPRESSIONS/RECOMMENDATIONS:
Abrupt onset of syncope. Despite the temporary right arm flaccidity and facial weakness as reported, this is still most auto service representative of a cardiovascular event. No evidence currently for TIA or stroke at this time although the patient is most
likely at higher risk for sudden cardiac based on dementia with the use of antipsychotics
Continue current medications
Fluid replacement
Would not at this time check MRI of brain
Would not at this time provide antiseizure medication
Patient's dementia is advanced to the point of which medications would not be of significant benefit
Will continue to follow as needed.
Original Note:
Documented by User: Tatum Villagran NP 08/07/24 14:42
Neuro Assessment/Plan
Assessment
83-year-old female with past medical history of advanced dementia, COPD, CAD, hyperlipidemia who presents from [facility] for evaluation of right sided weakness, right facial droop and unresponsive episode.
Head CT: No acute intracranial abnormality.
EKG:
SINUS RHYTHM WITH PREMATURE SUPRAVENTRICULAR COMPLEXES
LOW VOLTAGE QRS
NONSPECIFIC ST ABNORMALITY
WHEN COMPARED WITH ECG OF 04-JUN-2023 10:57,
PREMATURE SUPRAVENTRICULAR COMPLEXES ARE NOW PRESENT
TN INTERVAL HAS DECREASED
Plan
I. syncopal event secondary to acute dehydration with similar presentation in May and July of 2023 responded to fluids
II. acute CVA although unlikely given no abnormality on head CT and right upper extremity weakness resolved
III. cannot rule out seizure with Rosas's paralysis
Plan:
-encourage fluids
-seizure precautions
-no need for EEG at this time since symptoms resolved, if exam worsens can consider
-if exam worsens may consider brain MRI
-continue statin therapy
-DVT prophylaxis
-fall precautions
-PT/ST/OT evaluations
Plan of care discussed with Dr. Chaney, nurse and hospitalist
Consultation
Order
Date of Consultation: 08/07/24
Requesting Provider: hospitalist
Reason for Consult: right facial droop and snycope
Subjective/Objective
Subjective Data
Date of Service: August 07, 2024
83-year-old female with past medical history of advanced dementia, COPD, CAD, hyperlipidemia who presents from [facility] for evaluation of right sided weakness, right facial droop and unresponsive episode. The patient is a very
poor historian due to her dementia and unable to provide any meaningful history. At baseline she has significant dementia and is often combative; she does have mild dysarthria at baseline. Today staff witness an episode of unresponsiveness that
lasted for a minute or two at around 12:30 PM. After this episode they noted that she had some worsening of her dysarthria. They noted that she had a right sided flaccid paralysis and a right sided facial droop. Staff reports that this lasted for
about 15 minutes before symptoms improved. She was noted to be hypotensive and was given IV fluids with resolution of her right sided paralysis. She has had similar episodes in the past and presented to this hospital multiple times due to
dehydration and hypotension. There was concern for CVA/TIA and the patient was sent to the ER to be evaluated. She was a prehospital stroke alert. In the ED her blood glucose level was 144. Her head CT showed no acute intracranial abnormality. She
was uncooperative due to her dementia and NIHSS roughly 5. Patient appears to have some facial asymmetry with slight right sided facial droop. She is moving all extremities equally without any apparent strength deficit although she does not
consistently follow commands. She is responding to stimulus in all extremities; her speech is mildly dysarthric which is most likely chronic. Not a TNK/IAT candidate due to her advanced dementia and NIHSS<6.
Objective Data
Patient Allergies
Penicillins Allergy (Verified 08/04/23 20:33)
Unknown
CVA Assessment
Onset of Stroke Symptoms
Onset of symptoms known: Yes
Date of onset of symptoms: 08/07/24
Time of onset of symptoms: 12:30
Time pt last seen normal is known: Yes
Date last time pt seen normal: 08/07/24
Time last time pt seen normal: 12:30
NIH Stroke Score
Level of Consciousness: 0 - Alert
LOC Questions: 2-Neither correct (dementia)
LOC Commands: 2-Performs neither correctly (dementia)
Best Horizontal Gaze: 0-Normal
Visual Wilkerson: 0=Normal, no visual loss
Facial Palsy: 0=Normal, symmetrical
Motor - Right Arm: 0=No drift 10 seconds
Motor - Left Arm: 0=No drift 10 seconds
Motor - Right Le-No drift 5 seconds
Motor - Left Le-No drift 5 seconds
Limb Ataxia: UN-Amputation/jointfusion
Explanation of untestable limb ataxia: uncooperative
Sensation: 0-Normal
Best Language: 0-No aphasia
Dysarthria: 1-Mild slurring (dysarthria at baseline)
Extinction and Inattention: 0-No abnormality
NIH Total Score:: 5
Tenecteplase Contraindications
Inclusion and Exclusion criteria reviewed: Yes
IAT Contraindications: NIHSS < 6, Baseline mRS greater than or equal to 3 by history and Significant dementia
Modified Rosebud Score (MRS)
-
Modified Leora Scale (mRS): Severe disability. Requires constant nursing care.
Score: 5
Physical Exam
-
General: Appears Chronically Ill and Older than Stated Age
HEENT: Normocephalic and Atraumatic
Respiratory: No Dyspnea
Cardiac: JVD
GI: Non-distended
Skin: Unremarkable
Extremities: No Clubbing, No Cyanosis and No Edema
Psych: Confused and Apparent Dementia
Extended Neurological Exam
Mood & Affect: Anxious
Attention Span & Concentration: Awake, Alert and Unable to Perform 2 Step Request (advanced dementia)
Memory: Unable to Recall and Unable to Recall Personal History (dementia)
Speech: Dysarthric (chronic)
Cranial Nerve II: Left Eye: Unable to Assess
Cranial Nerve II: Right Eye: Unable to Assess
Cranial Nerves III, IV, : Extraocular Movement: Unable to Assess (uncooperative)
Cranial Nerve VII: Facial Symmetry: Reduced (mild right droop)
Cranial Nerve VIII: Hearing: Unable to Assess (uncooperative)
Muscle Strength, Overall: Spontaneously Moves (all extremities)
Pronator Drift: Unable to Assess (uncooperative)
Data Reviewed
-
CT Head: Report Reviewed and Image Reviewed
Labs: Report Reviewed
Reviewed with: Physician and Nurse
Old Records: Summarized
Medications
-
Home Medications
�Medication �Instructions �Recorded
acetaminophen 325 mg tablet 650 mg PO BID 06/04/23
(Tylenol)
aluminum-mag hydroxide-simethicone 30 ml PO Q6HPRN PRN INDIGESTION 06/04/23
200 mg-200 mg-20 mg/5 mL oral susp
atorvastatin 10 mg tablet (Lipitor) 10 mg PO QPM 06/04/23
bisacodyl 10 mg rectal suppository 10 mg TN [id number] PRN IF NO BM AFTR 06/04/23
(Dulcolax (bisacodyl)) MOM
diclofenac sodium 1 % topical gel 3 g topical Q8H B/L KNEES AND 06/04/23
RIGHT LOWER BACK
famotidine 20 mg tablet (Pepcid) 20 mg PO DAILY 06/04/23
lorazepam 0.5 mg tablet 0.5 mg PO HS 06/04/23
magnesium hydroxide 400 mg/5 mL 2,400 mg PO HSPRN PRN CONSTIPATION 06/04/23
oral suspension (Milk of Magnesia)
nitroglycerin 0.4 mg sublingual 0.4 mg sublingual [id number] PRN 06/04/23
tablet (Nitrostat) CHEST PAIN
trazodone 50 mg tablet 25 mg PO HS 06/04/23
trazodone 50 mg tablet 50 mg PO DAILY 06/04/23
quetiapine 100 mg tablet (Seroquel) 100 mg PO BID 03/09/24
Past History
Past History
ED Past Medical History: Other (Dementia, CAD, hyperlipidemia, reflux)
Family/Social History
Tobacco: Other (Unable to assess patient demented)
Alcohol: Other (Unable to assess patient demented)
Drug: Other (Unable to assess patient did not)

Documented by User: Yoni Chaney MD 08/07/24 15:27
CVA Assessment
NIH Stroke Score
NIH Total Score:: 5
Modified Leora Score (MRS)
-
Score: 5
--- NOTE | 2024-08-07 13:31 | ED.CVA ---
History of Present Illness
General
Chief Complaint: CVA/TIA Symptoms
Source: patient, ambulance crew and halfway records
Exam Limitations: dementia
Time Seen by Provider: 08/07/24 13:26
Nursing documentation reviewed up to this point in time: agreed with
Onset of Stroke Symptoms
Onset of symptoms known: Yes
Date of onset of symptoms: 08/07/24
Time of onset of symptoms: 12:30
History of Present Illness
History of Present Illness:
83-year-old female with past medical history of advanced dementia, COPD, CAD, hyperlipidemia who presents from [facility] for evaluation of right sided weakness and unresponsive episode. The patient is a very poor historian due to
her dementia. I spoke to the nursing staff at [facility] to obtain collateral history: At baseline she has significant dementia and is often combative; she does have some slurring of the speech at baseline. Today staff witness an episode of
unresponsiveness that lasted for a minute or 2 at around 12:30 PM. After this episode they noted that she had some worsening of her chronic slurred speech and they noted that she had a right sided flaccid paralysis and a right sided facial droop.
Staff reports that this lasted for about 15 minutes before it seemed to improve however she was still quite lethargic. Apparently she has had similar episodes in the past. They were concerned for CVA/TIA and sent patient to the ER to be evaluated.
Past History
Past History
ED Past Medical History: Other (Dementia, CAD, hyperlipidemia, reflux)
Social History
Tobacco: Other (Unable to assess patient demented)
Alcohol: Other (Unable to assess patient demented)
Drug: Other (Unable to assess patient did not)
Review of Systems
Review of Systems
Unable to obtain full review of systems at this time due to: dementia
All Other Systems: Not applicable
Phy Exam
Physical Exam
Physical Exam:
General: Awake, alert, nontoxic
Head: Normocephalic, atraumatic
Eyes: Conjunctiva normal, EOMI, pupils equal round reactive to light bilaterally
Throat: Airway intact, handling secretions
Neck: Trachea midline, supple without meningismus
Lungs: Clear to auscultation bilaterally, no wheezing, rales, rhonchi
Heart: Regular rate and rhythm, no murmurs, gallops, or rubs
Abd: Soft, non distended, no apparent tenderness
Neuro: Patient appears to have some facial asymmetry with slight right sided facial droop; she is moving all extremities equally without any apparent strength deficit although she does not consistently follow commands for more thorough neurologic
assessment; she is responding to stimulus in all extremities; her speech is mildly dysarthric
Skin: no rash
Extremities: Warm and well-perfused with good pulses throughout
Scores
NIH Stroke Score
Level of Consciousness: 0 - Alert
LOC Questions: 1-Answers one correctly
LOC Commands: 2-Performs neither correctly
Best Horizontal Gaze: 0-Normal
Visual Wilkerson: 0=Normal, no visual loss
Facial Palsy: 1=Minor paralysis
Motor - Right Arm: 0=No drift 10 seconds
Motor - Left Arm: 0=No drift 10 seconds
Motor - Right Le-No drift 5 seconds
Motor - Left Le-No drift 5 seconds
Limb Ataxia: 0-Absent
Sensation: 0-Normal
Best Language: 0-No aphasia
Dysarthria: 1-Mild slurring
Extinction and Inattention: 0-No abnormality
NIH Total Score:: 5
Heart Failure Risk
Heart Failure Risk Score: Not Applicable
Heart Score for Chest Pain Patients
STEMI patient?: Not applicable
Withdrawal Assessment of Alcohol
Withdrawal Assessment Completed?: Not applicable
Course
Orders/Labs/Results
Orders:
Orders
08/07/24 13:21
CT HEAD STROKE ALERT W/o Cont Stat
Reason For Exam: r sided facial droop
08/07/24 13:26
Electrocardiogram (*1) Stat
Reason for Study: Other
Other Reason for Exam: neuro symptoms
Bedside Glucose- Treatment ONCE
Cardiac Monitoring- Treatment ONCE
EKG- Treatment ONCE
IV Insert/Care/Rem.- Treatment PRN
Pulse Ox/cont/shift [RESP] Stat
Quantity: 1
08/07/24 13:34
Complete Blood Count/With Diff Urgent
Comprehensive Metabolic Panel Urgent
08/07/24 13:45
Aspirin 300 mg RECTAL NOW STA
Abnormal Lab Results
08/07/24 08/07/24
13:34 13:36
MCHC 31.4 L g/dL
(33.0-37.0)
RDW 14.7 H %
(11.5-14.5)
MPV 10.7 H fL
(7.4-10.4)
Absolute Neuts (auto) 7.5 H 10^3/uL
(1.4-6.5)
Absolute Monos (auto) 0.7 H 10^3/uL
(0.1-0.6)
Neutrophils % 76.9 H %
(42.2-75.2)
Lymphocytes % 13.3 L %
(20.5-51.1)
POC Glucose 158 H mg/dl
(70-99)
08/07/24 13:34
Vital Signs
Initial and Last Documented VS:
Initial Vital Signs
BP
113/71
08/07/24 13:34
Last Documented Vital Signs
Pulse Resp BP Pulse Ox
92 15 113/71 94
08/07/24 13:35 08/07/24 13:35 08/07/24 13:34 08/07/24 13:35
MDM/Problems Addressed
Differential Diagnosis Includes:
Syncope, seizure, stroke/TIA
MDM/Problems Addressed:
83-year-old female presents from halfway�had transient episode of unresponsiveness followed by right sided weakness that seems to have resolved; she does have some slight residual facial asymmetry and dysarthria although apparently has some
dysarthria at baseline. Vitals and exam as above. Stroke alert was called she was taken for CT head reviewed in real-time with neurology shows no acute abnormality. Possible seizure versus syncope versus TIA/CVA�send usual labs, check EKG. Will
plan to admit for continued evaluation and treatment. Neurology recommending against tenecteplase at this point. Discussed case with hospitalist for admission.
Chronic conditions affecting care:
Vascular disease
*Radiology
Radiology exam reviewed: preliminary read by ED provider and radiology read reviewed
*Pulse Oximetry
Patient hypoxic: no (96%)
*EKG
Interpreted by ED Provider?: Yes
Heart Rate: 98
Rate: normal
Rhythm: sinus
[place]: normal axis
Interval: normal interval
QRS Pattern: normal QRS
Ischemia: non-specific ST changes
*Critical Care Note
Total Time (30-74mins, 75-104mins- exclusive of procedures): Not Applicable
Data Reviewed
Review of Other/Old Records Reveals: Labs and Records
Source: patient, ambulance crew and halfway
Patient Management
Discussion with other providers: Hospitalist (Discussed with hospitalist), Joiner Helper (Discussed with neurology), Radiologist (Discussed with radiology) and assisted staff (Discussed directly with halfway staff)
Escalation/DeEscalation of care consider admission/obs:
Admission indicated
ED Attending Note
-
Portions of this chart may have been created with voice recognition software.� Occasional wrong word or��sound alike� substitutions may have occurred due to the inherent limitations of voice recognition software.
Discharge Plan
Departure
Patient Disposition: Admit
Date of Disposition: 08/07/24
Time of Disposition: 13:49
Admit to doctor: [facility]
Presentation/result/management discussed w/ accepting MD/DO: Hospitalist
Discharge Problem:
CVA (cerebrovascular accident)
Prescriptions:
No Action
trazodone 50 mg Tablet
25 mg PO QPM
trazodone 50 mg Tablet
50 mg PO DAILY
atorvastatin [Lipitor] 10 mg Tablet
10 mg PO QPM
famotidine [Pepcid] 20 mg Tablet
20 mg PO DAILY
lorazepam 0.5 mg Tablet
0.25 mg PO QPM
magnesium hydroxide [Milk of Magnesia] 400 mg/5 mL Suspension
2,400 mg PO HSPRN PRN (Reason: CONSTIPATION)
bisacodyl [Dulcolax (bisacodyl)] 10 mg Suppository
10 mg IN [id number] PRN (Reason: q 3 days if no BM and MOM/lactulose ineffective)
nitroglycerin [Nitrostat] 0.4 mg Tablet, Sublingual
0.4 mg SUBLINGUAL [id number] PRN (Reason: CHEST PAIN)
diclofenac sodium [Voltaren] 1 % Gel
3 g TOPICAL Q8H
quetiapine [Seroquel] 100 mg Tablet
100 mg PO BID
tramadol 50 mg Tablet
25 mg PO BID
Patient Comments:
08/07/2024, give w/ tylenol 1000 mg.
acetaminophen [Tylenol Extra Strength] 500 mg Tablet
1,000 mg PO BID
Patient Comments:
08/07/2024, give with Tramadol 25 mg.
aluminum-magnesium hydroxide 225-200 mg/5 mL Suspension
30 ml PO Q6HPRN PRN (Reason: dyspepsia)
Patient Comments:
08/07/2024, give prior to nitro for chest pain.
calcium carbonate-vitamin D3 500 mg-15 mcg (600 unit) Tablet
1 tab PO BID
Patient Comments:
08/07/2024, chewable tablet.
Interventions
Interventions:
*Risk Screen - Suicide Last Done: 08/07/24 13:24
*General Assessment Last Done: 08/07/24 13:24
*Neglect/Abuse Screening Last Done: 08/07/24 13:24
*ED- Fall Risk Assessment Last Done: 08/07/24 13:24
ED- Pulmonary Assessment Last Done: 08/07/24 13:43
ED- Neurological Assessment Last Done: 08/07/24 13:43
ED- Cardiac Assessment Last Done: 08/07/24 13:43
Discharge Date and Time
Print Language: SOL[place] ISLANDER
[2024-08-07 13:33] VITALS: BMI 22.0
[2024-08-07 13:34] VITALS: BP 113/71
[2024-08-07 13:37] LABS: Glucose - Point of Care 158 mg/dl (70-99)
[2024-08-07 13:45] LABS: Hematocrit 41.1 % (37.0-47.0); Hemoglobin 12.9 g/dL (12.0-16.0); Mean Corp Hgb Conc. 31.4 g/dL (33.0-37.0); Mean Corpuscular Volume 94.5 fL (81.0-99.0); Nucleated Red Blood Cells % 0 %; Platelet Count 212 10^3/uL (130-400); Red Cell Dist. Width 14.7 % (11.5-14.5)
[2024-08-07] MEDS: ASPIRIN 300 MG RECTAL (13:53)
[2024-08-07 14:00] VITALS: BP 106/72
[2024-08-07 14:07] LABS: ALT (SGPT) 13 U/L (0-35); AST (SGOT) 20 U/L (14-36); Albumin 3.7 g/dl (3.5-5.0); Alkaline Phosphatase 76 U/L (38-126); Blood Urea Nitrogen 25 mg/dl (7-17); Calcium 10.2 mg/dl (8.4-10.2); Carbon Dioxide 28 mmol/L (22-30); Chloride 109 mmol/L (98-107); Estimated Creatinine Clearance 46 ml/min; Glucose 148 mg/dl (70-99); Potassium 4.0 mmol/L (3.5-5.1); Sodium 144 mmol/L (135-145); Total Protein 6.7 g/dl (6.3-8.2); eGFR > 60.00
--- NOTE | 2024-08-07 14:19 | HPS.HSE ---
Family Physician
-
Family Physician: Octaviano Oconnor DO
Chief Complaint
-
right-sided weakness and unresponsive episode
History of Present Illness
Patient is a 83-year-old female with past medical history significant for ASCVD, hyperlipidemia, GERD and dementia who presented to [facility] ED from [facility] for evaluation of right-sided weakness and unresponsive episode. Patient minimally
engages in assessment and poor historian. Review of chart to obtain HPI. Patient was found to be unresponsive at approximately 1230 this afternoon, she presented with right-sided weakness and right facial droop. Evaluated by facility IT TRAINEE who noted
pupils were sluggish in response to light. Patient became more responsive in < 5 minutes but continued with significant lethargy. There is noted similar episodes in the past. Staff concerned for stroke so sent patient for evaluation.
Medical History
Past Medical History
Past Medical History: Reports Other
Additional Past Medical History:
ASCVD
hyperlipidemia
GERD
dementia
depression/anxiety
paranoid personality disorder
protein-calorie malnutrition
Past Surgical History: Reports None
Social History
Unable to obtain full social history at this time due to: Dementia
Family History
Family History: Unable to Obtain
Allergies / Home Medications
Allergies reflects when Allergies were last updated in [employer].
Home Medications with original date entered in [employer]
Allergy/Medication List:
Allergies
Allergy/AdvReac Type Severity Reaction Status Date / Time
Penicillins Allergy Unknown Verified 08/04/23 20:33
Home Medications
atorvastatin 10 mg tablet (Lipitor) 10 mg PO QPM 06/04/23
bisacodyl 10 mg rectal suppository (Dulcolax (bisacodyl)) 10 mg DE [id number] PRN q 3 days if no BM and MOM/lactulose ineffective 06/04/23
diclofenac sodium 1 % topical gel 3 g topical Q8H B/L KNEES AND RIGHT LOWER BACK 06/04/23
famotidine 20 mg tablet (Pepcid) 20 mg PO DAILY 06/04/23
lorazepam 0.5 mg tablet 0.25 mg PO QPM 06/04/23
magnesium hydroxide 400 mg/5 mL oral suspension (Milk of Magnesia) 2,400 mg PO HSPRN PRN CONSTIPATION 06/04/23
nitroglycerin 0.4 mg sublingual tablet (Nitrostat) 0.4 mg sublingual [id number] PRN CHEST PAIN 06/04/23
trazodone 50 mg tablet 25 mg PO QPM 06/04/23
trazodone 50 mg tablet 50 mg PO DAILY 06/04/23
quetiapine 100 mg tablet (Seroquel) 100 mg PO BID 03/09/24
acetaminophen 500 mg tablet (Tylenol Extra Strength) 1,000 mg PO BID 08/07/24
aluminum-magnesium hydroxide 225 mg-200 mg/5 mL oral suspension 30 ml PO Q6HPRN PRN dyspepsia 08/07/24
calcium 500 mg (as carbonate)-vitamin D3 15 mcg (600 unit) tablet 1 tab PO BID 08/07/24
tramadol 50 mg tablet 25 mg PO BID 08/07/24
Review of Systems
-
Unable to obtain full review of systems at this time due to: Dementia
Physical Exam
Vital Signs
Vital Signs
Pulse Resp BP Pulse Ox
92 15 113/71 94
08/07/24 13:35 08/07/24 13:35 08/07/24 13:34 08/07/24 13:35
Physical Exam
General: Well Developed, No Apparent Distress, Slurred Speech, Appears Chronically Ill and Cachectic
HEENT: NormoCephalic, Moist mucous membranes, Atraumatic, Nose Appears Normal and Ears Appear Normal
Respiratory: Clear
Cardiac: S1/S2 and Regular Rhythm
Breast: Deferred by me
GI: Soft, Non Tender, Non Distended and Normal Bowel Sounds
Rectal: Deferred by Provider
Genito-urinary: Deferred by me
Musculoskeletal: No Clubbing, No Cyanosis and No Edema
Skin: Warm and IV/Catheter Site
Neuro: Nonfocal/grossly intact
Laboratory Results
-
08/07/24 13:34
08/07/24 13:34
Laboratory Results
Total Bilirubin 0.6 mg/dl (0.2-1.3) 08/07/24 13:34
AST 20 U/L (14-36) 08/07/24 13:34
ALT 13 U/L (0-35) 08/07/24 13:34
Alkaline Phosphatase 76 U/L (38-126) 08/07/24 13:34
Data Reviewed
-
CT Scan: Report Reviewed by me (Head: No acute intracranial abnormality. ASPECT score: 10)
Medical Tests (Nuc Med, Echo, EKG etc): Report Reviewed by me (EKG: SINUS RHYTHM WITH PREMATURE SUPRAVENTRICULAR COMPLEXES LOW VOLTAGE QRS NONSPECIFIC ST ABNORMALITY)
Lab Data: Labs Reviewed by me
Impression/Plan
-
IMPRESSION/PLAN:
#unresponsiveness right-sided weakness, right facial droop 2/2 CVA/TIA vs. seizure vs. dehydration
Head CT: No acute intracranial abnormality.
ASPECT score: 10
EKG: SINUS RHYTHM WITH PREMATURE SUPRAVENTRICULAR COMPLEXES
LOW VOLTAGE QRS
NONSPECIFIC ST ABNORMALITY
- Admit to telemetry
- Consult Neurology
- encourage fluids
- seizure precautions
- consider MRI if exam worsens
- Consult PT/OT
- Consult speech
#ASCVD
#hyperlipidemia
- continue atorvastatin
#GERD
- continue famotidine
#dementia
#depression/anxiety
#paranoid personality disorder
- continue lorazepam, quetiapine and trazodone
#protein-calorie malnutrition
Code status: DNR
DVT prophylaxis: SCDs
--- NOTE | 2024-08-07 14:57 | W.PN.UPDATE ---
Update Note
Progress Note Update
This is an addendum to H&P written by Sanjuana Isidro on 08/07/2024. �Patient seen and examined independently with PORTABLE TRACK CREW CHIEF.
83-year-old female with past medical history of CAD, GERD, anxiety/depression, paranoid personality disorder, severe dementia, protein calorie malnutrition presenting with right-sided weakness and unresponsiveness episode. �Has some slurring of
speech at baseline. �Today staff witnessed unresponsive episode lasting 1 to 2 minutes and then worsening of her chronic slurred speech. �They noted right-sided flaccid paralysis and right-sided facial droop lasting for 15 minutes.
On examination patient has good muscle tone in her bilateral upper extremities, poor muscle tone in bilateral lower extremities. �Patient not following commands and talking nonsense.
Possible patient with syncopal episode secondary to hypovolemia versus CVA versus seizure. �Rectal aspirin given. �IV fluids. �Check speech evaluation, PT and OT. �Resume medications if able. �Consider MRI brain. �Neurology following.
[2024-08-07 15:00] VITALS: BP 118/74
[2024-08-07 15:14] LABS: HDL Cholesterol 36 mg/dl; LDL Cholesterol, Calculated 52 mg/dl; Very Low Density Lipoprotein 29 mg/dl (0-30)
[2024-08-07 15:45] LABS: TSH 1.50 uIU/ml (0.47-4.68)
[2024-08-07 16:00] VITALS: BP 115/72
[2024-08-07 16:38] VITALS: BMI 22.7
[2024-08-07 16:39] VITALS: BP 113/70
[2024-08-07 17:24] LABS: APTT 28.5 Sec (23.4-35.0)
[2024-08-07] MEDS: DESYREL PO ×2 (17:46→19:31)
[2024-08-07] MEDS: LIPITOR PO ×2 (17:46→19:32)
[2024-08-07] MEDS: NSS 1000 IV (17:46)
[2024-08-07] MEDS: NSS (PRESERVATIVE FREE) 0.25 ML IV (19:31)
[2024-08-07] MEDS: ATIVAN 0.5 MG IV (19:32)
--- NOTE | 2024-08-07 19:32 | PTCARENOTE ---
NIHSS 6. unable to fully assess due to advanced dementia. attempted to give this patient her PO medications. offered her meds crushed in , she only took small part of it and spit out the rest. patient is very restless, unable to redirect, gets out
of bed, does not follow fall safety. FRUIT BU[employer]ER contacted for orders
[2024-08-07] MEDS: OSCAL 500 + D PO (20:50)
[2024-08-07] MEDS: SEROQUEL PO (20:50)
[2024-08-07] MEDS: TYLENOL PO (20:50)
[2024-08-07] MEDS: ULTRAM PO (20:51)
[2024-08-07 23:00] VITALS: BP 126/82
--- NOTE | 2024-08-07 23:41 | PTCARENOTE ---
oral care was asked/attempted on patient, but the patient refused care.
[2024-08-08 02:15] LABS: Urine Character Slightly Cloudy (Clear)
[2024-08-08 03:00] VITALS: BP 155/83
[2024-08-08 04:07] LABS: Urine Squamous Cell >30 /LPF (Few); Urine Urothelial Cell >30 /LPF (FEW)
[2024-08-08 04:08] LABS: Urine White Cell >100 /HPF (0-5)
[2024-08-08] MEDS: NSS 1000 IV ×2 (05:08→16:48)
[2024-08-08 07:00] VITALS: BP 120/75
[2024-08-08 08:18] LABS: Hematocrit 39.5 % (37.0-47.0); Hemoglobin 12.5 g/dL (12.0-16.0); Mean Corp Hgb Conc. 31.6 g/dL (33.0-37.0); Mean Corpuscular Volume 92.9 fL (81.0-99.0); Platelet Count 223 10^3/uL (130-400); Red Cell Dist. Width 14.6 % (11.5-14.5)
[2024-08-08 08:21] LABS: INR 1.03; PT 13.8 Sec (11.4-14.6)
--- NOTE | 2024-08-08 08:27 | W.PN.NEURO.1 ---
Today's Communication / Plan
-
-encourage fluids
-no need for EEG at this time since symptoms resolved, if exam worsens can consider
-if exam worsens may consider brain MRI
Neuro Assessment/Plan
Assessment
83-year-old female with past medical history of advanced dementia, COPD, CAD, hyperlipidemia who presents from [facility] for evaluation of right sided weakness, right facial droop and unresponsive episode.
Head CT: No acute intracranial abnormality.
Abrupt onset of syncope. Despite the temporary right arm flaccidity and facial weakness as reported, this is still most district sales representative of a cardiovascular event. No evidence currently for TIA or stroke at this time although the patient is most
likely at higher risk for sudden cardiac based on dementia with the use of antipsychotics
Plan
-encourage fluids
-no need for EEG at this time since symptoms resolved, if exam worsens can consider
-if exam worsens may consider brain MRI
-continue statin therapy
-DVT prophylaxis
-fall precautions
-PT/ST/OT evaluations
Will follow as needed.
Subjective/Objective
Subjective Data
Date of Service: August 08, 2024
Objective Data
Vital Signs
Temp Pulse Resp BP Pulse Ox
36.5 C 94 16 155/83 96
08/08/24 03:00 08/08/24 03:00 08/08/24 03:00 08/08/24 03:00 08/08/24 03:00
Lab Results
08/08/24 07:05
PT 13.8 Sec (11.4-14.6) 08/08/24 07:05
INR 1.03 08/08/24 07:05
APTT 28.5 Sec (23.4-35.0) 08/07/24 17:04
Sodium 144 mmol/L (135-145) 08/07/24 13:34
Potassium 4.0 mmol/L (3.5-5.1) 08/07/24 13:34
BUN 25 mg/dl (7-17) H 08/07/24 13:34
Glucose 148 mg/dl (70-99) H 08/07/24 13:34
Calcium 10.2 mg/dl (8.4-10.2) 08/07/24 13:34
LDL Cholesterol, Calc 52 mg/dl 08/07/24 13:34
Patient Allergies
Penicillins Allergy (Verified 08/04/23 20:33)
Unknown
Past History
Past History
ED Past Medical History: CAD, GERD, Hypercholesterolemia, Psychiatric (Major depression, paranoid personality disorder) and Other (Dementia, CAD, hyperlipidemia, reflux, episodic dehydration, syncope)
ED Past Surgical History: None
Social History
Tobacco: Other (Unable to assess patient demented)
Alcohol: Other (Unable to assess patient demented)
Drug: Other (Unable to assess patient did not)
Living: [facility]
Family History
Family History: Other (Unavailable)
Medications
-
Medications:
Generic Name Dose Route Start Last Admin
Trade Name Freq PRN Reason Stop Dose Admin
Acetaminophen 1,000 mg 08/07/24 20:00 08/07/24 20:50
Acetaminophen 500 Mg Tablet PO 09/04/24 19:59 Not Given
BID MARKOS
Acetaminophen 650 mg 08/07/24 16:14
Acetaminophen 650 Mg Rectal Suppository RECTAL 09/04/24 16:13
Q4HPRN PRN
WILLIAMSON, mild pain, or temp >100.4F
Acetaminophen 650 mg 08/07/24 16:14
Acetaminophen 325 Mg Tablet PO 09/04/24 16:13
Q4HPRN PRN
WILLIAMSON, mild pain, or temp >100.4F
Aspirin 300 mg 08/08/24 08:00
Aspirin 300 Mg Rectal Suppository RECTAL 09/05/24 07:59
DAILY MARKOS
Atorvastatin Calcium 10 mg 06/27/25 18:00 08/07/24 19:32
Atorvastatin (Lipitor) 10 Mg Tablet PO 09/04/24 17:59 Not Given
QPM MARKOS
Calcium/Vitamin D 500 mg 08/07/24 20:00 08/07/24 20:50
Calcium Carbonate 500 Mg/Vitamin D 5 Mcg (200 Units) Tablet PO 09/04/24 19:59 Not Given
BID MARKOS
Famotidine 20 mg 08/08/24 08:00
Famotidine 20 Mg Tablet PO 09/05/24 07:59
DAILY MARKOS
Sodium Chloride 1,000 mls @ 100 mls/hr 08/07/24 16:14 08/08/24 05:08
Nss IV 1,000 mls
.Q10H MARKOS Administration
Lorazepam 0.25 mg 08/07/24 18:00 08/07/24 19:30
Lorazepam 0.5 Mg Tablet PO 09/04/24 17:59 Not Given
QPM MARKOS
Quetiapine Fumarate 100 mg 08/07/24 20:00 08/07/24 20:50
Quetiapine 100 Mg Tablet PO 09/04/24 19:59 Not Given
BID MARKOS
Sodium Chloride 0 flush 08/07/24 17:00
Sodium Chloride 0.9% (Flush) Syringe IV 09/04/24 16:59
PER PROTOCOL MARKOS
Tramadol HCl 25 mg 08/07/24 20:00 08/07/24 20:51
Tramadol Hcl 50 Mg Tablet PO 09/04/24 19:59 Not Given
BID MARKOS
Trazodone HCl 25 mg 08/07/24 18:00 08/07/24 19:31
Trazodone 50 Mg Tablet PO 09/04/24 17:59 Not Given
QPM MARKOS
Trazodone HCl 50 mg 08/08/24 08:00
Trazodone 50 Mg Tablet PO 09/05/24 07:59
DAILY MARKOS
[2024-08-08 08:35] LABS: Blood Urea Nitrogen 16 mg/dl (7-17); Calcium 9.4 mg/dl (8.4-10.2); Carbon Dioxide 23 mmol/L (22-30); Chloride 111 mmol/L (98-107); Estimated Creatinine Clearance 67 ml/min; Glucose 93 mg/dl (70-99); Potassium 3.6 mmol/L (3.5-5.1); Sodium 144 mmol/L (135-145); eGFR > 60.00
[2024-08-08] MEDS: PEPCID 20 MG PO (08:52)
[2024-08-08] MEDS: ULTRAM 25 MG PO (08:52)
[2024-08-08] MEDS: TYLENOL 1000 MG PO (08:52)
[2024-08-08] MEDS: SEROQUEL 100 MG PO (08:52)
[2024-08-08] MEDS: OSCAL 500 + D 500 MG PO (08:52)
[2024-08-08] MEDS: ASPIRIN 300 MG RECTAL (08:53)
[2024-08-08] MEDS: DESYREL 50 MG PO (09:00)
--- NOTE | 2024-08-08 10:05 | W.PN.HOSP.TC ---
Today's Communication/Plan
-
see plan
Assessment / Plan
Assessment / Plan
Gen: NAD, NCAT, awake and alert
Eyes: EOMI, PERRLA, no scleral icterus.
Neck: supple.
CV: RRR, +S1/S2, no m/r/g.
Resp: CTAB, no rales, wheezes, or rhonchi.
Abd: +BS, soft, NT, ND
Skin: No rashes.
Neuro: CN 2-12 intact, non-focal.
Psych: falt affect.
CT brain: No acute intracranial abnormality.
R-sided weakness following syncopal episode:
-hx is consistent with primarily cardiac event but nevertheless we will need to check an MRI of the brain
-neurology following
-c/s cardiology
-no need for EEG as per neuro
-monitor on tele (SR)
-cont ASA/statin
Other problems:
CAD: cont ASA/statin
GERD: cont Pepcid
Anxiety/depression: cont Seroquel/Trazodone
Paranoid personality disorder: cont Seroquel/Trazodone
Severe dementia
DNR/SCDs
Anticipated Discharge: Within 24 hours
Subjective/Interval History
-
Date of Service: August 08, 2024
Pt demented. Agitated earlier today.
Objective Data
-
Labs:
Laboratory Results
08/08/24
07:05
WBC 10.4
Hgb 12.5
Hct 39.5
Plt Count 223
PT 13.8
INR 1.03
Sodium 144
Potassium 3.6
Chloride 111 H
Carbon Dioxide 23
BUN 16
Creatinine 0.6
Glucose 93
Calcium 9.4
Vital Signs:
Vital Signs
Temp Pulse Resp BP Pulse Ox
98.2 F 97 16 120/75 95
08/08/24 07:00 08/08/24 07:00 08/08/24 07:00 08/08/24 07:00 08/08/24 07:00
I&O
08/07/24 08/08/24 08/09/24
06:59 06:59 06:59
Output Total 20 / 20
Balance -20 / -20
[2024-08-08 10:19] VITALS: BMI 22.7
[2024-08-08 11:00] VITALS: BP 119/65
--- NOTE | 2024-08-08 11:18 | CON.CAR ---
Addendum entered and electronically signed by Nick Rubio MD 08/08/24 13:31:
83 yo female with PMH of CAD (known details), advanced dementia is admitted with unresponsive episode. There were also some neuro symptoms. She is a poor historian. She does deny CP/SOB/dizziness. Exam with RRR, no murmurs, no edema. EKG: NSR,
nonspecific ST abnl. Tele: SR 90s, PAC's.
Trend tele for arrhythmia. Echo based on clinical course.
Continue ASA/statin for CAD.
Original Note:
Consultation
Consultation Request
Date/Time Consultation Requested: 08/08/24 10:15a
Date/Time Consultation Performed: 08/08/24 11a
Requesting Provider: Dr. Palacio
Performing Provider: AYLEEN Renteria for Dr. Rubio
Reason for Consultation: syncope
Medical History
-
Chief Complaint: syncope
History of Present Illness:
Mrs. Ennis is an 83 yo female with CAD, GERD, anxiety/depression, paranoid personality disorder, severe dementia, and malnutrition (resident at [facility]), who presented to the ER with an unresponsive episode witnessed by staff with right
sided weakness, facial droop/paralysis. Her chart notes chronic slurred speech, staff noted right sided facial droop/paralysis lasted about 15 mins. She is admitted to the hospitalist service and we are consulted for syncope. History is obtained
from her medical chart as she has severe dementia and is disoriented.
Past Medical History
Past Medical History: Other (as above)
Past Surgical History: Other (as above)
Social History
Alcohol: None
Living: Assisted
Family History
Family History: Unable to Obtain (dementia)
Allergies / Home Medications
Allergy/AdvReac Type Severity Reaction Status Date / Time
Penicillins Allergy Unknown Verified 08/04/23 20:33
�Medication �Instructions �Recorded �Confirmed �Type
atorvastatin 10 mg tablet (Lipitor) 10 mg PO QPM 06/04/23 08/07/24 History
bisacodyl 10 mg rectal suppository 10 mg IA [id number] PRN q 3 days if 06/04/23 08/07/24 History
(Dulcolax (bisacodyl)) no BM and MOM/lactulose ineffective
diclofenac sodium 1 % topical gel 3 g topical Q8H B/L KNEES AND 06/04/23 08/07/24 History
RIGHT LOWER BACK
famotidine 20 mg tablet (Pepcid) 20 mg PO DAILY 06/04/23 08/07/24 History
lorazepam 0.5 mg tablet 0.25 mg PO QPM 06/04/23 08/07/24 History
magnesium hydroxide 400 mg/5 mL 2,400 mg PO HSPRN PRN CONSTIPATION 06/04/23 08/07/24 History
oral suspension (Milk of Magnesia)
nitroglycerin 0.4 mg sublingual 0.4 mg sublingual [id number] PRN 06/04/23 08/07/24 History
tablet (Nitrostat) CHEST PAIN
trazodone 50 mg tablet 25 mg PO QPM 06/04/23 08/07/24 History
trazodone 50 mg tablet 50 mg PO DAILY 06/04/23 08/07/24 History
quetiapine 100 mg tablet (Seroquel) 100 mg PO BID 03/09/24 08/07/24 History
acetaminophen 500 mg tablet 1,000 mg PO BID 08/07/24 08/07/24 History
(Tylenol Extra Strength)
aluminum-magnesium hydroxide 225 30 ml PO Q6HPRN PRN dyspepsia 08/07/24 08/07/24 History
mg-200 mg/5 mL oral suspension
calcium 500 mg (as 1 tab PO BID 08/07/24 08/07/24 History
carbonate)-vitamin D3 15 mcg (600
unit) tablet
tramadol 50 mg tablet 25 mg PO BID 08/07/24 08/07/24 History
Review of Systems
-
Unable to obtain full review of systems at this time due to: Dementia
Physical Exam
Vital Signs
Temp Pulse Resp BP Pulse Ox
98.2 F 97 16 120/75 95
08/08/24 07:00 08/08/24 07:00 08/08/24 07:00 08/08/24 07:00 08/08/24 07:00
Lab Results
08/08/24 07:05
08/08/24 07:05
Physical Exam
General: Well Developed and No Apparent Distress
HEENT: Normocephalic and Anicteric
Respiratory: Clear and Non Labored Respirations
Cardiac: S1/S2 and Regular Rhythm
GI: Soft and Non Tender
Rectal: Deferred by Provider
Musculoskeletal: No Edema
Skin: Warm and Dry
Neuro: Awake (closely her eye and opens them to her name, not oriented x 3) and Other (right facial droop)
Psych: Calm
Impression / Plan
-
Syncope - unresponsive episode with right sided facial droop/paralysis lasting for 15 mins.
- witnessed by staff at [facility].
- no recurrence here in hospital.
- head CT w/o acute abnormality.
- Neurology consulted.
- awaiting brain MRI.
- consider echo inpatient vs outpatient based on her clinical course.
- monitor on tele, no arrhythmias noted.
CAD - unknown details.
Dementia - severe.
- also h/o paranoid personality disorder.
- not oriented and does not participate in exam.
Anxiety/depression - chronic.
Data Reviewed
-
EKG: Tracing Personally Visualized and interpreted (SR 98 bpm, with premature supraventricular complexes)
CT Scan: Report Reviewed by me (head: no acute abnormality)
Labs: Labs Reviewed by me
Old Records: Reviewed
--- NOTE | 2024-08-08 12:29 | PTOTSP ---
ST Acute Care Evaluation
Pt currently presents with clinical signs of mild oral dysphagia characterized by prolonged mastication and bolus formation with hard solids along with reduced bolus formation and oral residue s/p ingestion of hard solids. No overt s/s of
penetration or aspiration noted s/p ingestion of liquids or solids; however, silent aspiration cannot be ruled out at bedside.
Pt currently presents with impaired cognitive communication; however, it is difficult to discern to what extent pt's current presentation is due to her baseline severe dementia with behavioral disturbance (unknown baseline specifics) and what may be
due to an acute encephalopathy and/or acute cerebral infarction (MRI Brain pending). Will continue to monitor and evaluate further if deemed appropriate.
Recommendations:
- Change diet to SOFT BITE SIZED SOLIDS and continue with thin liquids; meds whole in puree.
- Aspiration precautions: HOB upright for all PO intake and for 60 minutes after PO intake; HOB upright at least 30 degrees at all times; full assist and encouragement with meals; small bites/sips; encourage alternating solids/liquids and slow PO
intake rate.
- HISTOLOGY ASSISTANT to f/u re: pt's tolerance of recommended diet consistencies and compensatory strategies; MRI brain results to determine if further cognitive linguistic assessment is warranted.
[2024-08-08] MEDS: DESENEX/MITRAZOL/ZEASORB 1 APPLIC TOPICAL ×2 (13:06→20:51)
[2024-08-08 15:00] VITALS: BP 117/77
--- NOTE | 2024-08-08 16:12 | CM ---
patient chart reviewed
CM consult completed
IA completed-obtained from dtr. Alicia
OBS status - review with daughter - in chart.
LTC resident of [facility] - referral placed in [facility]
PLOF: Wheelchair bound since she fell & hurt her back 5 mos ago per dtr
DME: Wheelchair, walker
PCP: Octaviano Oconnor
Pharmacy: [facility]
PLAN: return to [facility] when stable
[2024-08-08] MEDS: LIPITOR PO (18:39)
[2024-08-08] MEDS: DESYREL PO (18:39)
--- NOTE | 2024-08-08 18:43 | PTCARENOTE ---
pt refused 1800 oral medications. she said, 'Get it out of here!', will continue to monitor.
--- NOTE | 2024-08-08 19:42 | PTCARENOTE ---
Addendum entered by Roselyn May RN 08/08/24 19:49:
Difficult to assess patient for NIH today as at times, patient refuses to open eyes, open mouth etc. even though she is capable of doing so. has been agitated at times t/o this shift and resists turning and refused all meals and 1800 oral
medications. refuses scd's. b/l wrist restraints maintained, vss, will continue to monitor.
Original Note:
Difficult to assess patient for NIH today as at times, patient refuses to open eyes, open mouth etc. even though she is capable of doing so. has been agitated at times t/o this shift and resists turning and refused all meals and 1800 oral
medications. b/l wrist restraints maintained, vss, will continue to monitor.
[2024-08-08 19:50] VITALS: BP 167/105
[2024-08-08] MEDS: TYLENOL PO ×2 (20:56→21:26)
[2024-08-08] MEDS: SEROQUEL PO ×2 (20:56→21:26)
[2024-08-08] MEDS: ULTRAM PO ×2 (20:56→21:26)
[2024-08-08] MEDS: OSCAL 500 + D PO ×2 (20:56→21:26)
[2024-08-08] MEDS: ATIVAN 0.5 MG PO (20:57)
[2024-08-09] VITALS (7 sets, daily range): BP systolic 112–138; BP diastolic 60–94
[2024-08-09] MEDS: NSS IV (02:08)
[2024-08-09] MEDS: TYLENOL PO ×2 (09:44→20:57)
[2024-08-09] MEDS: SEROQUEL PO ×2 (09:44→20:57)
[2024-08-09] MEDS: ASPIRIN RECTAL (09:44)
[2024-08-09] MEDS: DESYREL PO ×2 (09:44→17:54)
[2024-08-09] MEDS: PEPCID PO (09:44)
[2024-08-09] MEDS: OSCAL 500 + D PO ×2 (09:44→20:57)
[2024-08-09] MEDS: ULTRAM PO ×2 (09:45→20:57)
--- NOTE | 2024-08-09 10:01 | W.PN.HOSP.TC ---
Today's Communication/Plan
-
see plan
Assessment / Plan
Assessment / Plan
Gen: NAD, NCAT, awake and alert
Eyes: EOMI, PERRLA, no scleral icterus.
Neck: supple.
CV: remains RRR, +S1/S2, no m/r/g.
Resp: CTAB anteriorly, no rales, wheezes, or rhonchi.
Abd: +BS, soft, NT, ND
Skin: No rashes.
Neuro: CN 2-12 intact, non-focal.
Psych: normal mood and affect.
CT brain: No acute intracranial abnormality.
R-sided weakness following syncopal episode:
-hx is consistent with primarily cardiac event but nevertheless we will need to check an MRI of the brain
-neurology/cardiology following
-no need for EEG as per neuro
-monitor on tele
-cont ASA/statin
-MRI brain ordered, still pending
-check echo
Other problems:
CAD: cont ASA/statin
GERD: cont Pepcid
Anxiety/depression: cont Seroquel/Trazodone
Paranoid personality disorder: cont Seroquel/Trazodone
Severe dementia
DNR/SCDs
Anticipated Discharge: Within 24 hours
Subjective/Interval History
-
Date of Service: August 09, 2024
Pt demented. Does not offer any acute complaints.
Objective Data
-
Vital Signs:
Vital Signs
Temp Pulse Resp BP Pulse Ox
98.2 F 73 16 136/80 98
08/09/24 07:00 08/09/24 07:00 08/09/24 07:00 08/09/24 07:00 08/09/24 07:00
I&O
08/08/24 08/09/24 08/10/24
06:59 06:59 06:59
Intake Total 790 / 790
Output Total
Balance -20 / -20 790 / 790
--- NOTE | 2024-08-09 11:55 | W.PN.CD ---
Today's Communication / Plan
-
echo in AM
ASA/statin
Impression / Plan
-
Syncope vs unresponsive episode with right sided facial droop/paralysis lasting for 15 mins.
- witnessed by staff at [facility].
- no recurrence here in hospital.
- head CT w/o acute abnormality.
- Neurology consulted.
- awaiting brain MRI.=
- monitor on tele: no arrhythmias noted.
-echo tomorrow
CAD - unknown details. Continue ASA, atorvastatin
-she denies chest pain
Dementia - severe.
- also h/o paranoid personality disorder.
- not oriented and does not participate in exam.
Anxiety/depression - chronic.
Physical Exam
Vital Signs/Labs
Vital Signs
Temp Pulse Resp BP Pulse Ox
97.2 F 96 16 138/64 97
08/09/24 11:00 08/09/24 11:00 08/09/24 11:00 08/09/24 11:00 08/09/24 11:00
08/08/24 08/09/24 08/10/24
06:59 06:59 06:59
Actual Weight 63.701 kg
08/08/24 07:05
08/08/24 07:05
PT 13.8 Sec (11.4-14.6) 08/08/24 07:05
INR 1.03 08/08/24 07:05
APTT 28.5 Sec (23.4-35.0) 08/07/24 17:04
Triglycerides 147 mg/dl (10-149) 08/07/24 13:34
LDL Cholesterol, Calc 52 mg/dl 08/07/24 13:34
VLDL Cholesterol, Calc 29 mg/dl (0-30) 08/07/24 13:34
HDL Cholesterol 36 mg/dl 08/07/24 13:34
TSH 1.50 uIU/ml (0.47-4.68) 08/07/24 13:34
Free T4 0.88 ng/dl (0.78-2.19) 08/07/24 13:34
Physical Exam
Constitutional: No acute distress and Comfortable
EENT: Moist mucous membranes
Cardiovascular: Rhythm & rate is regular, Pedal edema is absent, JVD pressure is normal and Systolic murmur absent
Respiratory: Respiratory effort normal and Lungs clear to auscul.
Neuro/Psych: Alert
Data Reviewed
-
Date of Service: August 09, 2024
EKG: Other (Tele: SR 80s, no arrhythmia)
Labs: Labs Reviewed by me
--- NOTE | 2024-08-09 14:06 | PTCARENOTE ---
Addendum entered by Debbie Wallace RN 08/09/24 19:14:
Correction, pt received an 11 on NIH not 13.
Addendum entered by Debbie Wallace RN 08/09/24 17:47:
Pt refused 1800 medication as well. Pt said 'I do not like it' and spit the medication and apple sauce out. After trying again the pt still refused. MD aware that pt did not want to take medication today. B/L restraints maintained with skin checks.
VSS, plan of care ongoing.
Original Note:
During NIH assessment this AM, pt was uncooperative and unable to do full assessment due to cognitive impairment. Pt received a 13 today when previous RN scored a 6. A second RN checked the assessment with me to ensure proper scoring. Hospitalist
notified per protocol and no further steps required per hospitalist. Pt also refused AM medications after trying 2 separate times, hospitalist was notified through TT. B/L restraints maintained, VSS, plan of care is ongoing.
[2024-08-09] MEDS: DESENEX/MITRAZOL/ZEASORB 1 APPLIC TOPICAL ×2 (14:53→20:56)
[2024-08-09] MEDS: LIPITOR PO (17:54)
[2024-08-09] MEDS: ATIVAN 0.5 MG PO (20:32)
[2024-08-09] MEDS: OFIRMEV 100 IV (21:29)
--- NOTE | 2024-08-10 00:42 | PTCARENOTE ---
oral care was attempted multiple times on patient, but due to them being heavily confused, the patient refused oral care. Will attempt again.
[2024-08-10 03:20] VITALS: BP 137/94
[2024-08-10 07:00] VITALS: BP 143/75
[2024-08-10] MEDS: SEROQUEL PO (07:46)
[2024-08-10] MEDS: PEPCID PO (07:46)
[2024-08-10] MEDS: ULTRAM PO (07:46)
[2024-08-10] MEDS: ASPIRIN RECTAL (07:46)
[2024-08-10] MEDS: DESYREL PO ×2 (07:46→18:00)
[2024-08-10] MEDS: TYLENOL PO (07:46)
[2024-08-10] MEDS: OSCAL 500 + D PO (07:46)
--- NOTE | 2024-08-10 08:07 | W.PN.CD ---
Today's Communication / Plan
-
Echo today
No further cardiac recommendations
We will sign-off; please call with questions/concerns.
Impression / Plan
-
Syncope vs unresponsive episode with right sided facial droop/paralysis lasting for 15 mins.
- witnessed by staff at [facility].
- no recurrence here in hospital.
- head CT w/o acute abnormality.
- Neurology consulted.
- awaiting brain MRI.=
- monitor on tele: no arrhythmias noted.
-echo today
CAD - unknown details. Continue ASA, atorvastatin
-she denies chest pain
Dementia - severe.
- also h/o paranoid personality disorder.
- not oriented and does not participate in exam.
Anxiety/depression - chronic.
Subjective: Granddaughter at bedside indicating possible comfort measures, otherwise, patient minimally interactive
Physical Exam
Vital Signs/Labs
Vital Signs
Temp Pulse Resp BP Pulse Ox
98.6 F 77 18 143/75 96
08/10/24 07:00 08/10/24 07:00 08/10/24 07:00 08/10/24 07:00 08/10/24 07:00
08/08/24 07:05
08/08/24 07:05
PT 13.8 Sec (11.4-14.6) 08/08/24 07:05
INR 1.03 08/08/24 07:05
APTT 28.5 Sec (23.4-35.0) 08/07/24 17:04
Triglycerides 147 mg/dl (10-149) 08/07/24 13:34
LDL Cholesterol, Calc 52 mg/dl 08/07/24 13:34
VLDL Cholesterol, Calc 29 mg/dl (0-30) 08/07/24 13:34
HDL Cholesterol 36 mg/dl 08/07/24 13:34
TSH 1.50 uIU/ml (0.47-4.68) 08/07/24 13:34
Free T4 0.88 ng/dl (0.78-2.19) 08/07/24 13:34
Physical Exam
Constitutional: No acute distress, Comfortable and Confusion
EENT: Anicteric
Cardiovascular: Rhythm & rate is regular and Pedal edema is absent
Respiratory: Respiratory effort normal and Lungs clear to auscul.
GI: Soft
Neuro/Psych: Oriented (orient to person )
Data Reviewed
-
Date of Service: August 10, 2024
EKG: Tracing Personally Visualized and interpreted (sr)
Labs: Labs Reviewed by me
[2024-08-10] MEDS: DESENEX/MITRAZOL/ZEASORB 1 APPLIC TOPICAL ×2 (09:36→21:40)
[2024-08-10 11:05] VITALS: BP 142/61
--- NOTE | 2024-08-10 12:18 | W.PN.HOSP.TC ---
Addendum entered and electronically signed by Edison Ty MD 08/10/24 14:45:
updated daughter over the phone in details.
Original Note:
Today's Communication/Plan
-
Monitor mentation
Intermittent episode of agitation
Uncooperative for echo
Assessment / Plan
Assessment / Plan
Gen: NAD, NCAT, awake and alert
Eyes: EOMI, no scleral icterus.
Neck: supple.
CV: remains RRR, +S1/S2, no m/r/g.
Resp: CTAB anteriorly, no rales, wheezes, or rhonchi.
Abd: +BS, soft, NT, ND
Skin: No rashes.
Neuro: CN 2-12 intact, non-focal.
Psych: Agitated
CT brain: No acute intracranial abnormality.
R-sided weakness following syncopal episode:
- MRI of the brain with no acute intercranial abnormality. Moderate to advanced chronic microvascular ischemic change. No vascular atrophy.
-neurology/cardiology following
-no need for EEG as per neuro
-monitor on tele
-cont ASA/statin
- Echo ordered however patient uncooperative. Can try later if possible. Unclear if that will mold insert changer
- Cardiology signed off
CAD: cont ASA/statin
GERD: cont Pepcid
Anxiety/depression: cont Seroquel/Trazodone
Paranoid personality disorder: cont Seroquel/Trazodone. Transition p.o. benzos to IV as refusing p.o. meds to avoid withdrawal
Severe dementia with behavioral disturbances continue with home medication regimen. Long-term prognosis guarded.
DNR
DVT prophylaxis-Lovenox
Called daughter to update no response left voicemail for call back
Anticipated Discharge: Within 24 hours
Subjective/Interval History
-
Date of Service: August 10, 2024
Remains agitated
Refusing medications at times
Objective Data
-
Vital Signs:
Vital Signs
Temp Pulse Resp BP Pulse Ox
98.0 F 88 17 142/61 97
08/10/24 11:05 08/10/24 11:05 08/10/24 11:05 08/10/24 11:05 08/10/24 11:05
I&O
08/09/24 08/10/24 08/11/24
06:59 06:59 06:59
Intake Total 790 / 790
Balance 790 / 790
Data Reviewed
-
Total Time Spent with Patient (in minutes): 55
[2024-08-10 15:00] VITALS: BP 138/98
[2024-08-10] MEDS: LIPITOR PO (18:00)
--- NOTE | 2024-08-10 18:03 | PTCARENOTE ---
Pt refused all medication throughout the shift. Medication was put in apple sauce whole as well as crushed, both attempts pt spit the medication and food out during all med passes. MD was made aware that pt refused medication. Tried to redirect and
orient pt as much as possible to give medication but pt still refused. VSS, b/l restraints remain with skin checks, and plan of care is ongoing.
[2024-08-10] MEDS: OSCAL 500 + D 500 MG PO (21:40)
[2024-08-10] MEDS: SEROQUEL 100 MG PO (21:41)
[2024-08-10] MEDS: TYLENOL 1000 MG PO (21:41)
[2024-08-10] MEDS: VALIUM INJECTION 1 MG IV (21:41)
[2024-08-10] MEDS: ULTRAM 25 MG PO (21:41)
[2024-08-10 23:00] VITALS: BP 132/76
[2024-08-11 07:00] VITALS: BP 114/64
--- NOTE | 2024-08-11 11:34 | W.PN.HOSP.TC ---
Today's Communication/Plan
-
Try to wean off restraints as possible
Monitor mentation
Labs in the morning
Assessment / Plan
Assessment / Plan
Gen: NAD, NCAT, sleeping
Eyes: EOMI, no scleral icterus.
Neck: supple.
CV: remains RRR, +S1/S2, no m/r/g.
Resp: CTAB anteriorly, no rales, wheezes, or rhonchi.
Abd: +BS, soft, NT, ND
Skin: No rashes.
Psych: Agitated when awake
CT brain: No acute intracranial abnormality.
Paranoid personality disorder: cont Seroquel/Trazodone. Transition p.o. benzos to IV as refusing p.o. meds to avoid withdrawal
Severe dementia with behavioral disturbances continue with home medication regimen. Long-term prognosis guarded.
Monitor mentation. Try to wean off restraints as possible.
R-sided weakness following syncopal episode:
- MRI of the brain with no acute intercranial abnormality. Moderate to advanced chronic microvascular ischemic change. No vascular atrophy.
-neurology/cardiology following
-no need for EEG as per neuro
-monitor on tele
-cont ASA/statin
- Echo ordered however patient uncooperative. Can try later if possible. Unclear if that will [employer]
- Cardiology signed off
CAD: cont ASA/statin
GERD: cont Pepcid
Anxiety/depression: cont Seroquel/Trazodone
DNR
DVT prophylaxis-Lovenox
Anticipated Discharge: 24 - 48 hours
Subjective/Interval History
-
Date of Service: August 11, 2024
Patient sleeping this morning has not been able to sleep much for the last 48 hours
Objective Data
-
Vital Signs:
Vital Signs
Temp Pulse Resp BP Pulse Ox
97.7 F 64 17 114/64 99
08/11/24 07:00 08/11/24 07:00 08/11/24 07:00 08/11/24 07:00 08/11/24 07:00
I&O
08/10/24 08/11/24 08/12/24
06:59 06:59 06:59
Intake Total 480 / 480
Balance 480 / 480
[2024-08-11] MEDS: ASPIRIN RECTAL (14:41)
[2024-08-11] MEDS: DESYREL PO (14:42)
[2024-08-11] MEDS: SEROQUEL PO ×2 (14:42→22:55)
[2024-08-11] MEDS: DESENEX/MITRAZOL/ZEASORB TOPICAL (14:42)
[2024-08-11] MEDS: TYLENOL PO ×2 (14:42→22:55)
[2024-08-11] MEDS: ULTRAM PO ×2 (14:42→22:55)
[2024-08-11] MEDS: PEPCID PO (14:42)
[2024-08-11] MEDS: OSCAL 500 + D PO ×2 (14:42→22:55)
[2024-08-11 15:00] VITALS: BP 110/71
[2024-08-11] MEDS: LIPITOR 10 MG PO (17:05)
[2024-08-11] MEDS: DESYREL 25 MG PO (17:14)
--- NOTE | 2024-08-11 17:34 | PTCARENOTE ---
Pt this Am refused her medication stating she did not want it, RN tried to give pt just apple sauce to see if she would be up to taking her medication and still declined. Pt slept mostly throughout the day, MD was made aware and made adjustments to
medications. Pt has been out of restraints since 1529 with no attempts to get out of bed or severe agitation. Pt took 1800 medication after multiple attempts in both apple sauce and pudding. Plan of care ongoing.
[2024-08-11] MEDS: DESENEX/MITRAZOL/ZEASORB 1 APPLIC TOPICAL (20:03)
[2024-08-12 00:24] VITALS: BP 145/93
[2024-08-12 07:00] VITALS: BP 129/59
[2024-08-12] MEDS: ULTRAM PO (08:48)
[2024-08-12] MEDS: SEROQUEL PO (08:48)
[2024-08-12] MEDS: OSCAL 500 + D PO (08:48)
[2024-08-12] MEDS: DESENEX/MITRAZOL/ZEASORB TOPICAL (08:48)
[2024-08-12] MEDS: ASPIRIN RECTAL (08:48)
[2024-08-12] MEDS: TYLENOL PO ×2 (08:48→20:10)
[2024-08-12] MEDS: PEPCID PO (08:48)
[2024-08-12] MEDS: DESYREL PO (08:48)
[2024-08-12 09:14] LABS: Hematocrit 43.8 % (37.0-47.0); Hemoglobin 14.1 g/dL (12.0-16.0); Mean Corp Hgb Conc. 32.2 g/dL (33.0-37.0); Mean Corpuscular Volume 91.3 fL (81.0-99.0); Nucleated Red Blood Cells % 0 %; Platelet Count 259 10^3/uL (130-400); Red Cell Dist. Width 14.7 % (11.5-14.5)
[2024-08-12 09:37] LABS: Blood Urea Nitrogen 17 mg/dl (7-17); Calcium 9.7 mg/dl (8.4-10.2); Carbon Dioxide 24 mmol/L (22-30); Chloride 107 mmol/L (98-107); Estimated Creatinine Clearance 57 ml/min; Glucose 130 mg/dl (70-99); Potassium 3.8 mmol/L (3.5-5.1); Sodium 139 mmol/L (135-145); eGFR > 60.00
--- NOTE | 2024-08-12 13:06 | W.PN.HOSP.TC ---
Today's Communication/Plan
-
Monitor off restraints
Continue to encourage to take p.o. meds
Fall precautions
Assist with feeding
Assessment / Plan
Assessment / Plan
Gen: NAD, NCAT, cachectic
Eyes: EOMI, no scleral icterus.
Neck: supple.
CV: remains RRR, +S1/S2, no m/r/g.
Resp: CTAB anteriorly, no rales, wheezes, or rhonchi.
Abd: +BS, soft, NT, ND
Skin: No rashes.
Neuro-apparent dementia, moving all 4 extremities
Psych: Confused, talking continuously
CT brain: No acute intracranial abnormality.
Paranoid personality disorder: cont Seroquel/Trazodone. Transition p.o. benzos to IV as refusing p.o. meds to avoid withdrawal
Severe dementia with behavioral disturbances continue with home medication regimen. Long-term prognosis guarded.
Monitor mentation. Patient off restraints. Valium IV as needed
Continue with Seroquel, trazodone.
Assistance with feeding
R-sided weakness following syncopal episode: Resolved
-MRI of the brain with no acute intercranial abnormality. Moderate to advanced chronic microvascular ischemic change. No vascular atrophy.
-neurology/cardiology following
-no need for EEG as per neuro
-cont statin. MRI brain negative for acute stroke.
-Echo with EF of 65 to 70% normal biventricular size and function without regional wall motion. Mild valvular disease with mitral stenosis, mitral regurgitation aortic stenosis
-Cardiology signed off
CAD: cont statin. Not asa
GERD: cont Pepcid
Anxiety/depression: cont Seroquel/Trazodone
Mild leukocytosis likely reactive
Remains afebrile
DNR
DVT prophylaxis-Lovenox
PT/OT-LTC
Updated patient daughter over the phone in details
Anticipated Discharge: Within 24 hours
Subjective/Interval History
-
Date of Service: August 12, 2024
Patient awake and continues to talk nonstop
Patient asking for her mother
Objective Data
-
Labs:
Laboratory Results
08/12/24
08:57
WBC 13.4 H
Hgb 14.1
Hct 43.8
Plt Count 259
Sodium 139
Potassium 3.8
Chloride 107
Carbon Dioxide 24
BUN 17
Creatinine 0.7
Glucose 130 H
Calcium 9.7
Vital Signs:
Vital Signs
Temp Pulse Resp BP Pulse Ox
98.3 F 88 17 129/59 97
08/12/24 07:00 08/12/24 07:00 08/12/24 07:00 08/12/24 07:00 08/12/24 07:00
I&O
08/11/24 08/12/24 08/13/24
06:59 06:59 06:59
Intake Total 480 / 480 240 / 240
Balance 480 / 480 240 / 240
--- NOTE | 2024-08-12 13:46 | CM ---
Cm following for pt's return to [facility] when medically cleared and off restraints. Pt has severe dementia with behavioral distubance. She is wheelchair bound for several years; persistently calling out for 'Mommy'.
Plan: Pt to return to LTC at [facility] when medically cleared.
[2024-08-12 15:00] VITALS: BP 150/88
[2024-08-12] MEDS: LIPITOR 10 MG PO (17:23)
[2024-08-12] MEDS: DESYREL 25 MG PO (17:23)
[2024-08-12] MEDS: SEROQUEL 100 MG PO (20:05)
[2024-08-12] MEDS: DESENEX/MITRAZOL/ZEASORB 1 APPLIC TOPICAL (20:05)
[2024-08-12 23:22] VITALS: BP 115/70
[2024-08-13 07:29] VITALS: BP 127/67
[2024-08-13] MEDS: TYLENOL PO ×3 (10:37→22:32)
[2024-08-13] MEDS: PEPCID PO (10:37)
[2024-08-13] MEDS: SEROQUEL PO ×3 (10:37→22:31)
[2024-08-13] MEDS: DESYREL PO (10:37)
--- NOTE | 2024-08-13 11:56 | W.PN.HOSP.TC ---
Today's Communication/Plan
-
Monitor for sedation-decrease Seroquel dosing
Stop tramadol for now
Assistance with feeding
Monitor off restraints
If awake and off restraints can consider discharge in the next 24 hours
Assessment / Plan
Assessment / Plan
Gen: NAD, NCAT, cachectic
Eyes: EOMI, no scleral icterus.
Neck: supple.
CV: remains RRR, +S1/S2, no m/r/g.
Resp: CTAB anteriorly, no rales, wheezes, or rhonchi.
Abd: +BS, soft, NT, ND
Skin: No rashes.
Neuro-apparent dementia, moving all 4 extremities
Psych: Confused, sleeping this morning
CT brain: No acute intracranial abnormality.
#Paranoid personality disorder:
cont Seroquel/Trazodone. Transition p.o. benzos to IV as refusing p.o. meds to avoid withdrawal
#Severe dementia with behavioral disturbances continue with home medication regimen. Long-term prognosis guarded.
Monitor mentation. Patient off restraints. Valium IV as needed
Continue with trazodone. Decrease Seroquel dosing.
Assistance with feeding
#R-sided weakness following syncopal episode: Resolved
MRI of the brain with no acute intercranial abnormality. Moderate to advanced chronic microvascular ischemic change. No vascular atrophy.
no need for EEG as per neuro
cont statin. MRI brain negative for acute stroke.
Echo with EF of 65 to 70% normal biventricular size and function without regional wall motion. Mild valvular disease with mitral stenosis, mitral regurgitation aortic stenosis
cardiology signed off
CAD: cont statin. Not asa
GERD: cont Pepcid
Anxiety/depression: cont Seroquel/Trazodone
Mild leukocytosis likely reactive
Remains afebrile
DNR
DVT prophylaxis-Lovenox
PT/OT-LTC
Updated patient daughter over the phone in details on 08/12/2024
Anticipated Discharge: Within 24 hours
Subjective/Interval History
-
Date of Service: August 13, 2024
took her meds last night
sleeping currently
Objective Data
-
Vital Signs:
Vital Signs
Temp Pulse Resp BP Pulse Ox
97.9 F 86 17 127/67 95
08/13/24 07:29 08/13/24 07:29 08/13/24 07:29 08/13/24 07:29 08/13/24 07:29
I&O
08/12/24 08/13/24 08/14/24
06:59 06:59 06:59
Intake Total 240 / 240 120 / 120
Balance 240 / 240 120 / 120
[2024-08-13] MEDS: DESENEX/MITRAZOL/ZEASORB 1 APPLIC TOPICAL ×2 (13:37→19:00)
[2024-08-13 15:44] VITALS: BP 117/61
[2024-08-13] MEDS: TYLENOL 650 MG PO (17:20)
[2024-08-13] MEDS: DESYREL 25 MG PO (17:21)
[2024-08-13] MEDS: LIPITOR 10 MG PO (17:22)
[2024-08-14 00:48] VITALS: BP 141/78
[2024-08-14 08:05] VITALS: BP 113/68
[2024-08-14] MEDS: SEROQUEL 75 MG PO (09:05)
[2024-08-14] MEDS: TYLENOL 1000 MG PO (09:05)
[2024-08-14] MEDS: PEPCID 20 MG PO (09:05)
[2024-08-14] MEDS: DESYREL 50 MG PO (09:06)
[2024-08-14] MEDS: DESENEX/MITRAZOL/ZEASORB 1 APPLIC TOPICAL ×2 (09:07→19:40)
--- NOTE | 2024-08-14 11:12 | W.PN.HOSP.TC ---
Today's Communication/Plan
-
Medically stable for discharge
Await placement
Daughter updated agreed for discharge
Seroquel dose decreased
Assessment / Plan
Assessment / Plan
Gen: NAD, NCAT, cachectic
Eyes: EOMI, no scleral icterus.
Neck: supple.
CV: remains RRR, +S1/S2, no m/r/g.
Resp: CTAB anteriorly, no rales, wheezes, or rhonchi.
Abd: +BS, soft, NT, ND
Skin: No rashes.
Neuro-apparent dementia, moving all 4 extremities
Psych: Confused, sleeping this morning
CT brain: No acute intracranial abnormality.
#Paranoid personality disorder:
cont Seroquel/Trazodone.
Seroquel dose decreased.
#Severe dementia with behavioral disturbances continue with home medication regimen. Long-term prognosis guarded.
Monitor mentation. Patient off restraints. Valium IV as needed has not required it
Continue with trazodone. Decrease Seroquel dosing.
Assistance with feeding
#R-sided weakness following syncopal episode: Resolved
MRI of the brain with no acute intercranial abnormality. Moderate to advanced chronic microvascular ischemic change. No vascular atrophy.
no need for EEG as per neuro
cont statin. MRI brain negative for acute stroke.
Echo with EF of 65 to 70% normal biventricular size and function without regional wall motion. Mild valvular disease with mitral stenosis, mitral regurgitation aortic stenosis
cardiology signed off
CAD: cont statin. Not asa
GERD: cont Pepcid
Anxiety/depression: cont Seroquel/Trazodone
Mild leukocytosis likely reactive
Remains afebrile
DNR
DVT prophylaxis-Lovenox
PT/OT-LTC
Updated patient daughter over the phone in details on 08/14/2024
More than 30 minutes spent in discharge including
Final examination of the patient
Summarizing hospital stay
Instructions for continuing care to all relevant caregivers
Preparation of discharge records, prescriptions, and referral forms
Total time spent (in minutes): 52
Anticipated Discharge: Today
Subjective/Interval History
-
Date of Service: August 14, 2024
Eating breakfast by herself
calm
Objective Data
-
Vital Signs:
Vital Signs
Temp Pulse Resp BP Pulse Ox
97.8 F 79 20 113/68 97
08/14/24 08:05 08/14/24 08:05 08/14/24 08:05 08/14/24 08:05 08/14/24 08:05
I&O
08/13/24 08/14/24 08/15/24
06:59 06:59 06:59
Intake Total 120 / 120
Balance 120 / 120
--- NOTE | 2024-08-14 14:22 | PTCARENOTE ---
Patient consistently calling out 'Mom' and having a conversation with herself. Patient has been pleasant, oriented to self only. Patient made multiple attempts to climb OOB, bed alarm maintained. Patient did feed herself breakfast with set up and
ate 75%.
[2024-08-14 16:06] VITALS: BP 91/56
[2024-08-14] MEDS: DESYREL 25 MG PO (17:35)
[2024-08-14] MEDS: SEROQUEL PO ×2 (19:40→19:47)
[2024-08-14] MEDS: TYLENOL PO ×2 (19:40→19:47)
[2024-08-14 23:20] VITALS: BP 136/80
[2024-08-15 07:34] VITALS: BP 134/78
--- NOTE | 2024-08-15 09:23 | CM ---
Addendum entered by Sarah Loera 08/15/24 11:00:
daughter spoke with CM via phone and indicated that she did not want form to be sent to her and that she understood her mother's rights. CM will document
Addendum entered by Sarah Loera 08/15/24 09:34:
VM left for patient daughter re; IMM and will leave form in room with patient.
Original Note:
Patient seen at bedside on . Patient for return to SNF; [facility] today. Patient LTC at facility [facility]. Per liaison facility has no land lines or fax working. Requested nursing report to be given to [phone] and copies of all clinical
documentation to be sent hard copy. Nursing updated as well as physician via tt. CM will call to patient family to confirm IMM and transportation. CM will continue to follow for discharge planning needs.
Plan; return to SNF.
[2024-08-15] MEDS: DESENEX/MITRAZOL/ZEASORB 1 APPLIC TOPICAL (09:30)
[2024-08-15] MEDS: DESYREL 50 MG PO (09:30)
[2024-08-15] MEDS: PEPCID 20 MG PO (09:30)
[2024-08-15] MEDS: SEROQUEL 75 MG PO (09:30)
[2024-08-15] MEDS: TYLENOL 1000 MG PO (09:30)
--- NOTE | 2024-08-15 10:39 | W.PN.HOSP.TC ---
Addendum entered and electronically signed by Edison Ty MD 08/15/24 13:16:
Did call daughter earlier today. No response left voicemail for call back but left message that patient will be discharged back to [facility].
Original Note:
Today's Communication/Plan
-
Long-term prognosis guarded
Decrease Seroquel
Discontinue tramadol
Assessment / Plan
Assessment / Plan
Gen: NAD, NCAT, cachectic
Eyes: EOMI, no scleral icterus.
Neck: supple.
CV: remains RRR, +S1/S2, no m/r/g.
Resp: CTAB anteriorly, no rales, wheezes, or rhonchi.
Abd: +BS, soft, NT, ND
Skin: No rashes.
Neuro-apparent dementia, moving all 4 extremities
Psych: Confused, sleeping this morning
CT brain: No acute intracranial abnormality.
#Paranoid personality disorder:
cont Seroquel/Trazodone.
Seroquel dose decreased.
#Severe dementia with behavioral disturbances continue with home medication regimen. Long-term prognosis guarded.
Monitor mentation. Patient off restraints. Valium IV as needed has not required it
Continue with trazodone. Decrease Seroquel dosing.
Assistance with feeding
#R-sided weakness following syncopal episode: Resolved
MRI of the brain with no acute intercranial abnormality. Moderate to advanced chronic microvascular ischemic change. No vascular atrophy.
no need for EEG as per neuro
cont statin. MRI brain negative for acute stroke.
Echo with EF of 65 to 70% normal biventricular size and function without regional wall motion. Mild valvular disease with mitral stenosis, mitral regurgitation aortic stenosis
cardiology signed off
CAD: cont statin. Not asa
GERD: cont Pepcid
Anxiety/depression: cont Seroquel/Trazodone
Mild leukocytosis likely reactive
Remains afebrile
DNR
DVT prophylaxis-Lovenox
PT/OT-LTC
More than 30 minutes spent in discharge including
Final examination of the patient
Summarizing hospital stay
Instructions for continuing care to all relevant caregivers
Preparation of discharge records, prescriptions, and referral forms
Total time spent (in minutes): 52
Anticipated Discharge: Today
Subjective/Interval History
-
Date of Service: August 15, 2024
Remains off restraints
Objective Data
-
Vital Signs:
Vital Signs
Temp Pulse Resp BP Pulse Ox
97.9 F 81 16 134/78 96
08/15/24 07:34 08/15/24 07:34 08/15/24 07:34 08/15/24 07:34 08/15/24 07:34
I&O
08/14/24 08/15/24 08/16/24
06:59 06:59 06:59
Intake Total 720 / 720
Balance 720 / 720
--- NOTE | 2024-08-15 10:40 | W.DCSUMMARY ---
Discharge Summary
Discharge Data
Date of Admission: 08/10/24
Date of Discharge: 08/15/24
-
Pending Results: No
Hospital Course
83 -year-old female past medical history of severe dementia with behavioral disturbances, anxiety, depression, CAD is presenting from [facility] with syncopal episode. Patient was eval by neurology and cardiology. Per neurology no need for EEG.
MRI was negative for acute stroke. Showed moderate to advanced chronic mild vascular ischemic change. Patient with episode of persistent behavioral disturbances. At times patient was severely lethargic and sleeping. Seroquel dose was decreased.
Tramadol was discontinued. Patient was tolerating current medication regimen. Patient be discharged back to [facility].
Discharge Plan
-
Patient Disposition: Care Home/SNF
Discharge Diagnosis/Procedures: Dementia with behavioral disturbances
Right-sided weakness
Leukocytosis likely reactive
Condition: Fair
Diet: Regular
Additional Diets: Assistance with feeding
Activity: With assistance and As tolerated
Driving Restrictions: No driving
Referrals:
Octaviano Oconnor DO [Family Provider, Family Practice] - in less than 1 week
Prescriptions:
New
melatonin 5 mg capsule
5 mg PO HS Qty: 30 0RF
Continued
trazodone 50 mg Tablet
25 mg PO QPM
trazodone 50 mg Tablet
50 mg PO DAILY
atorvastatin [Lipitor] 10 mg Tablet
10 mg PO QPM
famotidine [Pepcid] 20 mg Tablet
20 mg PO DAILY
magnesium hydroxide [Milk of Magnesia] 400 mg/5 mL Suspension
2,400 mg PO HSPRN PRN (Reason: CONSTIPATION)
bisacodyl [Dulcolax (bisacodyl)] 10 mg Suppository
10 mg [place] [id number] PRN (Reason: q 3 days if no BM and MOM/lactulose ineffective)
nitroglycerin [Nitrostat] 0.4 mg Tablet, Sublingual
0.4 mg SUBLINGUAL [id number] PRN (Reason: CHEST PAIN)
diclofenac sodium 1 % Gel
3 g TOPICAL Q8H
acetaminophen [Tylenol Extra Strength] 500 mg Tablet
1,000 mg PO BID
aluminum-magnesium hydroxide 225-200 mg/5 mL Suspension
30 ml PO Q6HPRN PRN (Reason: dyspepsia)
Patient Comments:
08/07/2024, give prior to nitro for chest pain.
calcium carbonate-vitamin D3 500 mg-15 mcg (600 unit) Tablet
1 tab PO BID
Patient Comments:
08/07/2024, chewable tablet.
Changed
quetiapine [Seroquel] 100 mg Tablet
75 mg PO BID Qty: 0 0RF
Discontinued
lorazepam 0.5 mg Tablet
0.25 mg PO QPM
tramadol 50 mg Tablet
25 mg PO BID
Patient Comments:
08/07/2024, give w/ tylenol 1000 mg.
Discharge Orders:
Discharge Patient (As Directed); Ordered 08/15/24
Ordered By: Edison Ty
Discharge Date and Time
Print Language: AMERICAN
[2024-08-15 15:27] VITALS: BP 117/66
== END 2024-08-15 15:56 | DRG 883 ==
LOC: 3 WEST ACU 08:01
PROVIDERS: Nurse Practitioner Family; ADMITTING PHYSICIAN Hospitalist; ATTENDING PHYSICIAN Hospitalist; CONSULT PHYSICIAN Internal Medicine; CONSULT PHYSICIAN Psychiatry & Neurology Neurology; EMERGENCY PHYSICIAN Emergency Medicine; FAMILY PHYSICIAN Student in an Organized Health Care Education/Training Program
DX: F60.0 Paranoid personality disorder (principal); F03.C2 Unspecified dementia, severe, with psychotic disturbance; E46 Unspecified protein-calorie malnutrition; G81.01 Flaccid hemiplegia affecting right dominant side; F03.C18 Unspecified dementia, severe, with other behavioral disturbance; F03.C4 Unspecified dementia, severe, with anxiety; F03.C3 Unspecified dementia, severe, with mood disturbance; R64 Cachexia; D72.829 Elevated white blood cell count, unspecified; K59.00 Constipation, unspecified; I25.10 Atherosclerotic heart disease of native coronary artery without angina pectoris; E78.5 Hyperlipidemia, unspecified; K21.9 Gastro-esophageal reflux disease without esophagitis; Z66 Do not resuscitate; Z68.22 Body mass index [BMI] 22.0-22.9, adult; F32.A Depression, unspecified; Z88.0 Allergy status to penicillin; R29.810 Facial weakness; E86.0 Dehydration; J44.9 Chronic obstructive pulmonary disease, unspecified; R29.705 NIHSS score 5; Z79.899 Other long term (current) drug therapy
CPT/HCPCS: 70450; 70551; 80048; 80053; 80061; 81003; 81015; 82962; 84439; 84443; 85025; 85027; 85610; 85652; 85730; 86850; 86900; 86901; 87070; 87147; 92526; 92610; 93005; 93306; 97163; 97167; 97530; 97535; 99285

== ENCOUNTER → 2024-12-21 11:01 | Outpatient (REF) | payer MEDICARE, OTHER, SELFPAY ==
[2024-12-21 12:18] LABS: Hematocrit 44.3 % (37.0-47.0); Hemoglobin 13.3 g/dL (12.0-16.0); Mean Corp Hgb Conc. 30.0 g/dL (33.0-37.0); Mean Corpuscular Volume 100.5 fL (81.0-99.0); Platelet Count 268 10^3/uL (130-400); Red Cell Dist. Width 14.0 % (11.5-14.5)
[2024-12-21 12:37] LABS: ALT (SGPT) 10 U/L (0-35); AST (SGOT) 17 U/L (14-36); Albumin 3.9 g/dl (3.5-5.0); Alkaline Phosphatase 62 U/L (38-126); Blood Urea Nitrogen 26 mg/dl (7-17); Calcium 9.9 mg/dl (8.4-10.2); Carbon Dioxide 28 mmol/L (22-30); Chloride 105 mmol/L (98-107); Glucose 79 mg/dl (70-99); HDL Cholesterol 36 mg/dl; LDL Cholesterol, Calculated 83 mg/dl; Potassium 4.7 mmol/L (3.5-5.1); Sodium 140 mmol/L (135-145); Total Protein 7.0 g/dl (6.3-8.2); Very Low Density Lipoprotein 33 mg/dl (0-30); eGFR 55.55
[2024-12-21 13:14] LABS: Glycohemoglobin (HgbA1c) 5.5 % (4.0-5.9)
== END ==
LOC: OLABN 11:01
PROVIDERS: ATTENDING PHYSICIAN Student in an Organized Health Care Education/Training Program
DX: I10 Essential (primary) hypertension (principal); R73.9 Hyperglycemia, unspecified
CPT/HCPCS: 36415; 80053; 80061; 83036; 85027